=== PATIENT | male | born 1935 | race Caucasian/White ===

== ENCOUNTER → 2022-08-09 | Outpatient (CLI) | payer OTHER | END | disposition home or self-care (01) | LOC: LAB 09:05 | PROVIDERS: ATTEND Internal Medicine | DX: E78.41 Elevated Lipoprotein(a) (principal); R68.89 Other general symptoms and signs; R73.09 Other abnormal glucose; E61.2 Magnesium deficiency; R94.6 Abnormal results of thyroid function studies; E79.0 Hyperuricemia without signs of inflammatory arthritis and tophaceous disease; R82.991 Hypocitraturia; E55.9 Vitamin D deficiency, unspecified; R82.90 Unspecified abnormal findings in urine; R82.79 Other abnormal findings on microbiological examination of urine; D51.9 Vitamin B12 deficiency anemia, unspecified | CPT/HCPCS: 82306; 87086 ==

== ENCOUNTER → 2022-08-27 | Outpatient (CLI) | payer OTHER ==
[2022-08-27 10:09] LABS: Eosinophils # (auto) 0.2 10 ^3/uL (0-0.8); Urine Bacteria FEW /hpf (None Seen); Urine Blood 2+ /uL (Negative); Urine Specific Gravity 1.026 (1.001-1.035); Urine WBC 120 /hpf (0 - 3)
[2022-08-27 10:12] LABS: Basophils # (auto) 0.2 10 ^3/uL (0-0.2); Basophils % (auto) 1.4 % (0.0-2.0); Eosinophils % (auto) 1.5 % (0.0-7.0); Hemoglobin 20.1 g/dL (13.5-17.5); Lymphocytes # (auto) 0.9 10 ^3/uL (0.4-5.4); Lymphocytes % (auto) 6.5 % (10.0-50.0); Mean Corpuscular Hemoglobin 28.1 pg (28.0-32.0); Mean Corpuscular Hgb Conc. 33.4 g/dL (32.0-36.0); Monocytes # (auto) 0.9 10 ^3/uL (0-1.3); Neutrophils # (auto) 11.1 10 ^3/uL (1.6-8.6); Neutrophils % (auto) 83.6 % (37.0-80.0); Nucleated Red Blood Cells % 1.3 %; Red Blood Cells 7.14 10^6/uL (4.5-5.90); Red Cell Distribution Width 17.9 % (11.8-14.3); White Blood Cell 13.3 10^3/uL (4.4-10.8)
[2022-08-27 10:43] LABS: Albumin 3.9 g/dL (3.4-5.0); Calcium 9.4 mg/dL (8.5-10.1); Magnesium 2.1 mg/dL (1.6-2.6); Potassium 4.7 mmol/L (3.5-5.1)
[2022-08-27 10:48] LABS: Total Protein 7.7 g/dL (6.4-8.2); Uric Acid 4.7 mg/dL (3.5-7.2)
[2022-08-27 10:52] LABS: Folate (Folic Acid) 4.74 ng/mL (5.38-24)
== END | disposition home or self-care (01) ==
LOC: LAB 09:26
PROVIDERS: ATTEND Internal Medicine
DX: E61.2 Magnesium deficiency (principal); R79.89 Other specified abnormal findings of blood chemistry; R94.6 Abnormal results of thyroid function studies; E55.9 Vitamin D deficiency, unspecified; R82.998 Other abnormal findings in urine; R82.90 Unspecified abnormal findings in urine; D51.9 Vitamin B12 deficiency anemia, unspecified; E78.49 Other hyperlipidemia; R68.89 Other general symptoms and signs; R73.09 Other abnormal glucose
CPT/HCPCS: 36415; 80053; 80061; 81001; 82306; 82607; 82746; 83735; 84443; 84550; 85025; 87086

== ENCOUNTER 2023-12-23 14:58 | Inpatient (IN) | payer MEDICARE, OTHER ==
[~2023-12-23] VITALS: Ht 175.3 cm; Wt 91.3 kg
[~2023-12-23 14:58] MED LIST: AMLO1TAB23 PO; ATOR80TA PO; FURO20TA3 PO; GABA-1250 PO; INSLANTI SC; METF-372 PO; METO-289 PO
--- NOTE | 2023-12-23 15:24 | ED.PDOC ---
History of Present Illness HPI Comments 88-year-old male brought by paramedics because of possible fall three days ago. Patient complaining of right lower rib pain. Denies loss of consciousness. History of hypertension CHF. He had similar fall three months ago for which she was seen at a different facility. Patient denies any other symptoms. Chief Complaint: Flank Pain Time Seen by MD: 15:05 Reviewed Notes: Nurses Notes, Medications, Allergies Allergies: Coded Allergies: NO KNOWN ALLERGIES (Unverified , 02/18/16) Home Meds Active Scripts Hydrocodone-Acetaminophen (Hydrocodone Bitartrate/AC 5-325 mg) 1 Tab Tab, 1 TAB PO DAILY for 5 Days, #5 TAB Prov:JOELLEN JENNINGS MD 12/23/23 Information Source: Patient, Emergency Med Personnel Mode of Arrival: EMS Severity: Moderate Timing: Days Duration: Since onset Past Medical History PAST MEDICAL HISTORY: DM, HTN Surgical History: Denies all surgeries Family History Family History: No family hx of Cancer, No family hx of Heart delisa Social History Smoker: Non-Smoker Alcohol: Denies ETOH Use Drugs: Denies Drug Use Lives In: Home Constitutional: denies: chills, diaphoresis, fatigue, fever, malaise, sweats, weakness, others EENTM: denies: blurred vision, double vision, ear bleeding, ear discharge, ear drainage, ear pain, ear ringing, eye pain, eye redness, hearing loss, mouth pain, mouth swelling, nasal discharge, nose bleeding, nose congestion, nose pain, photophobia, tearing, throat pain, throat swelling, voice changes, others Respiratory: denies: cough, hemoptysis, orthopnea, SOB at rest, shortness of breath, SOB with excertion, stridor, wheezing, others Cardiovascular: denies: chest pain, dizzy spells, diaphoresis, Dyspnea on exertion, edema, irregular heart beat, left arm pain, lightheadedness, palpitations, PND, syncope, others Gastrointestinal: denies: abdomen distended, abdominal pain, blood streaked bowels, constipated, diarrhea, dysphagia, difficulty swallowing, hematemesis, melena, nausea, poor appetite, poor fluid intake, rectal bleeding, rectal pain, vomiting, others Genitourinary: denies: burning, dysuria, flank pain, frequency, hematuria, incontinence, penile discharge, penile sore, pain, testicle pain, testicle swelling, urgency, others Neurological: denies: dizziness, fainting, headache, left sided numbness, left sided weakness, numbness, paresthesia, pre-existing deficit, right sided numbness, right sided weakness, seizure, speech problems, tingling, tremors, weakness, others Musculoskeletal: denies: back pain, gout, joint pain, joint swelling, muscle pain, muscle stiffness, neck pain, others Integumetry: denies: bruises, change in color, change in hair/nails, dryness, laceration, lesions, lumps, rash, wounds, others Allergic/Immunocompromised: denies: Difficulty Healing, Frequent Infections, Hives, Itching, others Hematologic/Lymphatic: denies: anemia, blood clots, easy bleeding, easy bruising, swollen glands, others Endocrine: denies: excessive hunger, excessive sweating, excessive thirst, excessive urination, flushing, intolerance to cold, intolerance to heat, unexplained weight gain, unexplained weight loss, others Psychiatric: denies: anxiety, bipolar disorder, depression, hopeless, panic disorder, schizophrenia, sleepless, suicidal, others Physical Exam General Appearance: Mild Distress, Normal HEENT: Normal ENT Inspection, Pharynx Normal, TMs Normal Neck: Full Range of Motion, Non-Tender, Normal, Normal Inspection Respiratory: Chest Non-Tender, Lungs Clear, No Accessory Muscle Use, No Respiratory Distress, Normal Breath Sounds Cardiovascular: No Edema, No JVD, No Murmur, No Gallop, Normal Peripheral Pulses, Regular Rate/Rhythm Breast Exam: Deferred Gastrointestinal: No Organomegaly, Non Tender, No Pulsatile Mass, Normal Bowel Sounds, Soft Genitalia: Deferred Pelvic: Deferred Rectal: Deferred Extremities: No calf tenderness, Normal capillary refill, Normal inspection, Normal range of motion, Non-tender, Pedal edema (Chronic) Musculoskeletal : Apperance: Normal Neurologic: Alert, instrument tech II-XII nml as Tested, No Motor Deficits, Normal Affect, Normal Mood, No Sensory Deficits Cerebellar Function: Normal Reflexes: Normal Skin: Dry, Normal Color, Warm Peripheral Pulses: 3+ Radial (R), 3+ Radial (L) Lymphatic: No Adenopathy Was a procedure done? Was a procedure done?: No Differential Dx Considerations may include: Musculoskeletal pain Strain X-Ray, Labs, Meds, VS Vital Signs Date Time Temp Pulse Resp B/P (MAP) Pulse Ox O2 Delivery O2 Flow Rate FiO2 12/23/23 15:08 97.7 71 16 148/80 (102) 98 Patient alert. Complaining of right-sided rib pain. Vitals stable. Answering all questions. Status post fall. No sign of distress. No head injury. Chronic condition. Reviewed his history. Explained to the patient. Chronic CHF. He is taking Lasix. Denies shortness of breath. Denies chest pain. Denies headache. Was told to follow up with his primary care physician. Was told to come back if there is any problem. Try to discharge the patient. He is having mild shortness a breath. CHF. Unable to take care himself. Fracture ribs. We will be admitted for CHF pain control. Time of 1ST Reevaluation: 15:22 Reevaluation 1ST: Unchanged Patient Education/Counseling: Diagnosis, Treatment, Prognosis, Need For Follow Up Family Education/Counseling: No Family Present Departure 1 Departure Time of Disposition: 15:24 Impression: Primary Impression: CHF (congestive heart failure) Qualified Codes: I50.43 - Acute on chronic combined systolic (congestive) and diastolic (congestive) heart failure Additional Impressions: Rib fracture Qualified Codes: S22.41XA - Multiple fractures of ribs, right side, initial encounter for closed fracture Pneumonitis Disposition: ADMITTED INPATIENT Admit to: Med Surg Condition: Guarded e-Prescriptions Hydrocodone-Acetaminophen (Hydrocodone Bitartrate/AC 5-325 mg) 1 Tab Tab 1 TAB PO DAILY for 5 Days, #5 TAB Prov: JOELLEN JENNINGS MD 12/23/23 Critical Care Note Critical Care Time?: No Stability Stability form required: No Heart Score Heart Score: Heart Score Response (Comments) Value History N/A 0 EKG N/A 0 Age N/A 0 Risk Factors N/A 0 Troponin N/A 0 Total 0 JOELLEN JENNINGS MD Dec 23, 2023 15:24
--- NOTE | 2023-12-23 16:23 | DVH ---
CHEST RADIOGRAPH Indication:sob Technique: Single frontal view of the chest was obtained Comparison: None FINDINGS: Lines and Tubes: None Lungs: No focal consolidation. Mild diffuse interstitial prominence. Pleura: No effusion. No pneumothorax. Cardiomediastinal contours: Mild cardiomegaly Bones: No acute osseous abnormality. IMPRESSION: Mild cardiomegaly with mild diffuse interstitial prominence which may be from fibrotic changes/pulmon chinyere edema/ interstitial pneumonitis.
--- NOTE | 2023-12-23 16:27 | DVH ---
CLINICAL INDICATION: fall TECHNIQUE: 4 radiographic views of the right ribs were obtained. Comparison: None FINDINGS/IMPRESSION: Minimally displaced fractures of the right 8th and 9th ribs. No pneumothorax no pleural effusions. The visualized joint space is well maintained. The alignment is anatomical. There is no radiopaque foreign body.
[2023-12-23] MEDS ORDERED: HYDR-4902 PO (16:37)
[2023-12-23] MEDS: cefTRIAXone 1GM/50ML D5W 50 ML IV ONE (17:16)
[2023-12-23] MEDS: HYDROcodone-ACET 5/325MG TAB PO ONE (17:20)
[2023-12-23] MEDS: FUROSEMIDE 20 MG/2 ML VIAL IV ONE (17:20)
[2023-12-23 17:39] VITALS: PULSE 94; RESP 18; O2SAT 96
[2023-12-23 17:52] LABS: Basophils # (auto) 0.3 10 ^3/uL (0-0.2); Basophils % (auto) 2.9 % (0.0-2.0); Eosinophils # (auto) 0.3 10 ^3/uL (0-0.8); Eosinophils % (auto) 2.5 % (0.0-7.0); Hematocrit 55.2 % (41.0-53.0); Hemoglobin 18.7 g/dL (13.5-17.5); Lymphocytes # (auto) 0.9 10 ^3/uL (0.4-5.4); Lymphocytes % (auto) 7.9 % (10.0-50.0); Mean Corpuscular Hemoglobin 27.8 pg (28.0-32.0); Mean Corpuscular Hgb Conc. 33.9 g/dL (32.0-36.0); Mean Corpuscular Volume 81.8 fL (80.0-100.0); Monocytes # (auto) 0.9 10 ^3/uL (0-1.3); Monocytes % (auto) 7.6 % (0.0-12.0); Neutrophils # (auto) 9.4 10 ^3/uL (1.6-8.6); Neutrophils % (auto) 79.1 % (37.0-80.0); Platelet Count (auto) 542 10^3/uL (140-450); Red Blood Cells 6.74 10^6/uL (4.5-5.90); Red Cell Distribution Width 16.6 % (11.8-14.3); White Blood Cell 11.8 10^3/uL (4.4-10.8)
[2023-12-23 17:59] LABS: Chloride 109 mmol/L (98-107); Potassium 3.6 mmol/L (3.5-5.1); Sodium 144 mmol/L (136-145)
[2023-12-23] MEDS: AZITHROMYCIN 500MG/ 250ML 250 ML IV ONE (17:59)
[2023-12-23 18:00] LABS: Anion Gap 10 (5-15); Calcium 9.7 mg/dL (8.7-10.4); Carbon Dioxide 25 mmol/L (20-31)
[2023-12-23 18:05] LABS: BUN/Creatinine Ratio 17.6 (10.0-20.0); Blood Urea Nitrogen 15 mg/dL (9-23); Glucose 102 mg/dL (74-106)
[2023-12-23 19:30] VITALS: PULSE 85; RESP 12; O2SAT 99
[2023-12-23] MEDS ORDERED: NITROGLYCERIN 0.4 MG SL TAB SL PRN (21:00)
[2023-12-23] MEDS ORDERED: ACETAMINOPHEN 325 MG TAB PO PRN (21:00)
[2023-12-23] MEDS ORDERED: ONDANSETRON HCL 4 MG/2 ML VIAL IV PRN (21:00)
[2023-12-23] MEDS ORDERED: MORPHINE SULFATE INJ 2 MG/ml SYRG IV PRN (21:00)
[2023-12-23] MEDS: SODIUM CHLOR 0.9% PF (SALINE LOCK) 10ML VIAL/SYR IV SCH (21:29)
[2023-12-23] MEDS: MORPHINE SULFATE INJ 2 MG/ml SYRG IV PRN (21:44)
[2023-12-23] MEDS: ENOXAPARIN SOD 40 MG/0.4 ML SYRINGE SC SCH (22:10)
[2023-12-23 23:40] VITALS: BP 124/62; PULSE 64; RESP 18; TEMP 98.2; O2SAT 98
[2023-12-23] MEDS: FUROSEMIDE 40 MG/4 ML VIAL IV SCH (23:45)
--- NOTE | 2023-12-23 23:49 | DVHHPRES ---
History of Present Illness Resident Creating Document: CHARU MOLINA RESIDENT History of Present Illness ROBERT IBRAHIM is 8 years old male with a PMH of type 2 DM, HTN presented to the ED with the chief complaints of mechanical fall without LOC three days prior to admission. Patient reported 3 days back he fell on the bed rail and hit his right-sided ribcage, having severe pain of right lower ribcage constant 7/10 without radiation, fever, nausea, vomiting, abdominal pain and other associated symptoms. Past Medical History Type 2 DM, HTN Past Surgical History Hernia repair Family History: None Past Social History Lives alone at home. Denies smoking, alcohol and other drug abuse Review of Systems Constitutional: No: Fever, Chills, Sweats, Weakness, Malaise, Other Eyes: No: Pain, Vision change, Conjunctivae inflammation, Eyelid inflammation, Other, Redness ENT: No: Ear pain, Ear discharge, Nose pain, Nose discharge, Nose congestion, Mouth pain, Mouth swelling, Throat pain, Throat swelling, Other Respiratory: Shortness of breath Cardiovascular: Edema Gastrointestinal: No: Nausea, Vomiting, Abdominal Pain, Diarrhea, Constipation, Melena, Hematochezia, Other Genitourinary: Retention Musculoskeletal: other (Right-sided lower rib cage pain) Skin: No: Rash, Lesions, Jaundice, Bruising, Other Neurological: No: Weakness, Numbness, Incoordination, Change in speech, Confusion, Seizures, Other Allergies: Coded Allergies: NO KNOWN ALLERGIES (Unverified , 02/18/16) Medications Current Medications Medications Dose Ordered Sig/Kishan Route Start Time Stop Time Status Last Admin Dose Admin Sodium Chloride 10 ml Q8HR IV 12/23/23 22:00 12/23/23 21:29 10 ML Acetaminophen 325 mg Q4HP PRN PO 12/23/23 21:00 Ondansetron HCl 4 mg Q4HP PRN IV 12/23/23 21:00 Morphine Sulfate 2 mg Q4HPRN PRN IV 12/23/23 21:00 12/23/23 21:44 2 MG Enoxaparin Sodium 40 mg DAILY@2100 SC 12/23/23 21:00 12/23/23 22:10 40 MG Nitroglycerin 0.4 mg Q5MINP PRN SL 12/23/23 21:00 Morphine Sulfate 2 mg Q30M PRN IV 12/23/23 21:00 Furosemide 40 mg DAILY IV 12/23/23 23:45 UNV Exam Vital Signs Vital Signs Date Time Temp Pulse Resp B/P (MAP) Pulse Ox O2 Delivery O2 Flow Rate FiO2 12/23/23 22:14 82 12 118/66 12/23/23 22:00 90 12/23/23 17:39 Room Air* 0 21 12/23/23 15:08 97.7 Exam Pt is lying on bed General Appearance: Alert, Oriented X3, Cooperative, Not in acute distress HEENT: Atraumatic, Mucous membranes moist/pink Respiratory: Clear to auscultation, Normal air movement, No added sounds Cardiovascular: Regular rate, Normal S1, Normal S2, No murmurs Abdominal: Active bowel sounds, Soft, no distention, no tenderness Extremities: 1+ edema in BLE Skin: No Significant rash, except past surgical scars MSK: Right-sided lower rib cage tenderness Neuro: Normal speech, sensorimotor deficits none Psych/Mental Status: Mental status NL, Mood NL Labs/Xrays Labs Test 12/23/23 17:25 Range/Units White Blood Count 11.8 H 4.4-10.8 10^3/uL Red Blood Count 6.74 H 4.5-5.90 10^6/uL Hemoglobin 18.7 H 13.5-17.5 g/dL Hematocrit 55.2 H 41.0-53.0 % Mean Corpuscular Volume 81.8 80.0-100.0 fL Mean Corpuscular Hemoglobin 27.8 L 28.0-32.0 pg Mean Corpuscular Hemoglobin Concent 33.9 32.0-36.0 g/dL Red Cell Distribution Width 16.6 H 11.8-14.3 % Platelet Count 542 H 140-450 10^3/uL Mean Platelet Volume 7.4 6.9-10.8 fL Neutrophils (%) (Auto) 79.1 37.0-80.0 % Lymphocytes (%) (Auto) 7.9 L 10.0-50.0 % Monocytes (%) (Auto) 7.6 0.0-12.0 % Eosinophils (%) (Auto) 2.5 0.0-7.0 % Basophils (%) (Auto) 2.9 H 0.0-2.0 % Neutrophils # (Auto) 9.4 H 1.6-8.6 10 ^3/uL Lymphocytes # (Auto) 0.9 0.4-5.4 10 ^3/uL Monocytes # (Auto) 0.9 0-1.3 10 ^3/uL Eosinophils # (Auto) 0.3 0-0.8 10 ^3/uL Basophils # (Auto) 0.3 H 0-0.2 10 ^3/uL Nucleated Red Blood Cells 0.0 % Sodium Level 144 136-145 mmol/L Potassium Level 3.6 3.5-5.1 mmol/L Chloride Level 109 H 98-107 mmol/L Carbon Dioxide Level 25 20-31 mmol/L Anion Gap 10 5-15 Blood Urea Nitrogen 15 9-23 mg/dL Creatinine 0.85 0.700-1.30 mg/dL Glomerular Filtration Rate Calc 85 >90 mL/min BUN/Creatinine Ratio 17.6 10.0-20.0 Serum Glucose 102 74-106 mg/dL Calcium Level 9.7 8.7-10.4 mg/dL Troponin I High Sensitivity 6 </=54 ng/L B-Type Natriuretic Peptide 183.80 0-100 pg/mL Assessment/Plan Assessment/Plan # acute displaced fracture of right 8th and 9th ribs -currently on pain management -evident on x-ray -consult orthopedic if needed # ? Reactive leukocytosis # rule out sepsis -given 1 dose ceftriaxone -monitor lab # ? Acute G+/G- Bacterial PNA -given 1 dose of azithromycin and ceftriaxone -CXR findings suggestive of pneumonia # ? acute vs chronic systolic vs diastolic CHF -elevated BNP -ordered echocardiogram -currently given Lasix 40 mg IV -consult cardiology if needed # polycythemia -monitor lab -ordered reticulocyte count Lovenox for now No GI PPX Cardiac diet Reconciled home meds Goals of care discussed with the patient for more than 27 minutes: Full code status Case management discussed with Dr. Sanchez, patient and nurse Plan discussed with: Patient My Orders Orders - CHARU MOLINA RESIDENT Procedure Category Date Status Time Allergies MARK 12/23/23 In Process 20:46 Code Status CODE 12/23/23 Transmitted 20:46 Sodium Chloride Lock PHA 12/23/23 In Process (Saline Lock Ns) 22:00 Acetaminophen Tablet PHA 12/23/23 In Process (Tylenol Tablet) 21:00 Ondansetron Hcl PHA 12/23/23 In Process (Zofran) 21:00 Complete Blood Count LAB 12/24/23 Verified 04:00 Comprehensive LAB 12/24/23 Verified Metabolic Panel 04:00 Cardiac DIET 12/24/23 Transmitted Diet-2gna,Lofat,Lochol Breakfast Morphine Sulfate PHA 12/23/23 In Process Injection 21:00 Enoxaparin Sodium PHA 12/23/23 In Process (Lovenox) 21:00 Nitroglycerin PHA 12/23/23 In Process Sublingual (Ntrostat 21:00 Morphine Sulfate PHA 12/23/23 In Process Injection 21:00 Oxygen By Nasal RT 12/23/23 Transmitted Cannula 20:46 Stat Ekg For Chest MARK 12/23/23 In Process Pain 20:46 Notify Of Changes MARK 12/23/23 In Process From Base 20:46 Supervisor Of Communications For MARK 12/23/23 In Process 24 Hours 20:46 Emergency Dysrhythmia [facility] 12/23/23 In Process Protocol 20:46 Rhythm Strips Once [facility] 12/23/23 In Process Every Shift 20:46 Admit ADMIT 12/23/23 Transmitted 20:47 Complete Blood Count LAB 12/23/23 Transmitted 23:39 Comprehensive LAB 12/23/23 Transmitted Metabolic Panel 23:39 Drug Screen LAB 12/23/23 Transmitted 23:39 Hemoglobin A1c LAB 12/23/23 Transmitted 23:39 PTPTT LAB 12/24/23 Verified 04:00 Thyroid Stimulating LAB 12/23/23 Transmitted Hormone 23:39 Urinalysis LAB 12/23/23 Transmitted 23:39 Vitamin B12 LAB 12/23/23 Transmitted 23:39 Vitamin D, 25-Hydroxy LAB 12/23/23 Transmitted 23:39 Lactic Acid W/ Reflex LAB 12/23/23 Transmitted Order 23:39 Echo 2d Mode Cardiac US 12/23/23 Logged DOP 23:39 Furosemide Injection PHA 12/23/23 Logged (Lasix Injection) 23:45 Reticulocyte Count LAB 12/23/23 Transmitted 23:46 Date of Service: Dec 23, 2023 Billing Provider: KEE SANCHEZ MD Common Visit Codes: [id number] INP/OBS CARE (HIGH) Secondary Visit Codes: [id number] CARE PLAN 30 MINUTES JESSECHARLENEKIAN RESIDENT Dec 23, 2023 23:49 KEE SANCHEZ MD Dec 24, 2023 12:54
[2023-12-24] VITALS (9 sets, daily range): BP systolic 103–138; BP diastolic 52–79; PULSE 53–95; RESP 15–18; TEMP 97.8–99.2; O2SAT 94–98
[2023-12-24 06:27] LABS: Basophils # (auto) 0.1 10 ^3/uL (0-0.2); Basophils % (auto) 1.3 % (0.0-2.0); Eosinophils # (auto) 0.2 10 ^3/uL (0-0.8); Eosinophils % (auto) 1.6 % (0.0-7.0); Hematocrit 49.3 % (41.0-53.0); Hemoglobin 16.6 g/dL (13.5-17.5); Lymphocytes # (auto) 0.7 10 ^3/uL (0.4-5.4); Lymphocytes % (auto) 6.2 % (10.0-50.0); Mean Corpuscular Hemoglobin 27.6 pg (28.0-32.0); Mean Corpuscular Hgb Conc. 33.7 g/dL (32.0-36.0); Mean Corpuscular Volume 81.7 fL (80.0-100.0); Monocytes # (auto) 0.8 10 ^3/uL (0-1.3); Neutrophils # (auto) 9.8 10 ^3/uL (1.6-8.6); Neutrophils % (auto) 83.9 % (37.0-80.0); Nucleated Red Blood Cells % 0.1 %; Platelet Count (auto) 467 10^3/uL (140-450); Red Blood Cells 6.04 10^6/uL (4.5-5.90); Red Cell Distribution Width 16.4 % (11.8-14.3); White Blood Cell 11.7 10^3/uL (4.4-10.8)
[2023-12-24 06:41] LABS: INR 1.31 (0.9-1.15); Partial Thromboplastin Time 33.4 SEC (24.5-34.5); Prothrombin Time 13.6 sec (9.3-11.8)
[2023-12-24 06:50] LABS: Alanine Aminotransferase 85 U/L (7-40); Albumin 3.7 g/dL (3.2-4.8); Alkaline Phosphatase 83 U/L (46-116); Anion Gap 6 (5-15); Aspartate Aminotransferase 72 U/L (13-40); BUN/Creatinine Ratio 14.7 (10.0-20.0); Blood Urea Nitrogen 14 mg/dL (9-23); Calcium 9.3 mg/dL (8.7-10.4); Carbon Dioxide 29 mmol/L (20-31); Chloride 109 mmol/L (98-107); Glucose 156 mg/dL (74-106); Potassium 3.8 mmol/L (3.5-5.1); Sodium 144 mmol/L (136-145); Total Protein 6.1 g/dL (5.7-8.2)
[2023-12-24 08:27] LABS: Urine Bacteria None Seen /hpf (None Seen)
[2023-12-24 08:35] LABS: Urine Blood 1+ /uL (Negative); Urine Clarity Clear (Clear); Urine Color Yellow (Yellow); Urine Mucus FEW (None Seen); Urine Protein, UAD 1+ (Negative); Urine Specific Gravity 1.022 (1.001-1.035); Urine Urobilinogen Normal (Negative); Urine WBC 107 /hpf (0 - 3); Urine pH 5.5 (5.0-9.0)
[2023-12-24 08:45] LABS: Amphetamine Screen, Urine Neg (NEGATIVE); Barbiturate Scree,Urine Neg (NEGATIVE); Benzodiazephine Screen, Urine Neg (NEGATIVE); Cannabinoid Screen, Urine Neg (NEGATIVE); Cocaine Screen, Urine Neg (NEGATIVE); Opiate Scree,Urine Pos (NEGATIVE); Phencyclidine Screen, Urine Neg (NEGATIVE)
[2023-12-24] MEDS: METOPROLOL TARTRATE 25 MG TAB PO ONE (11:41)
[2023-12-24] MEDS: ERGOCALCIFEROL 50,000 UNIT(1.25MG) CAP PO SCH (11:43)
--- NOTE | 2023-12-24 13:31 | DVHSR ---
APPROVED REPORT EXAM: LIMITED Two-dimensional and M-mode echocardiogram with Doppler and color Doppler. Blood Pressure: 112/55 mmHg INDICATION Edema SOB RISK FACTORS Height: 5' 9", Weight: 207 DIMENSIONS LVDd5.0 (3.8-5.7cm)LA (2D)4.4 (1.9-4.0cm)Aortic Root3.7 (2.0-3.7cm) LVDs3.9 (2.5-4.0cm)LA (MM) (1.9-4.0cm)Aortic Cusp Exc1.7 (1.5-2.0cm) EF (%) 45.0 (55-70%)Rt. Atrium4.1 (1.9-4.0cm)Asc. Aorta cm IVSd1.1 (0.7-1.1cm)RV (D) (1.8-2.4cm) PWd1.2 (0.7-1.1cm) Mitral Valve MitralMitral Stenosis E wave1.00m/sMV Mean GR.mmHg E/A ratio0.02D MVAcm2 Aortic Valve Aortic ValveAortic Stenosis V10.70m/[place] Mean GR.3mmHg V21.10m/[place] Peak GR.5mmHg LVOT Diameter2.7 (1.8-2.4cm)Doppler AVA3.64cm2 Pulmonic Valve V20.70m/s Tricuspid Valve TR Velocity2.70m/s [id number] Other Information Quality : Technically LimitedRhythm : Technically limited study due to body habitus. Conclusion Mildly reduced left ventricular systolic function estimated ejection fraction 45% in a global fashion . Patient is in atrial fibrillation. Normal right ventricular systolic function. Moderately dilated right ventricle. Mildly elevated rig ht ventricular systolic pressure 36 mm of mercury. Moderate biatrial enlargement. The aortic valve is mildly thickened and sclerotic. Normal mitral valve structure and function. Normal tricuspid valve structure and function. The pulmonary valve is grossly normal. No pericardial effusion.
--- NOTE | 2023-12-24 14:04 | DVHPN2 ---
Subjective The patient is seen and examined at bedside. No complaint today. Very tired Reviewed: Care Plan, H&P, Labs, Medications, Previous Orders, Radiology Changes from previous H/P or p: No Changes Eyes: No Pain, No Vision change, No Conjunctivae inflammation, No Eyelid inflammation, No Other, No Redness ENT: No Ear pain, No Ear discharge, No Nose pain, No Nose discharge, No Nose congestion, No Mouth pain, No Mouth swelling, No Throat pain, No Throat swelling, No Other Cardiovascular: Edema Respiratory: Shortness of breath Gastrointestinal: No Nausea, No Vomiting, No Abdominal Pain, No Diarrhea, No Constipation, No Melena, No Hematochezia, No Other Genitourinary: Retention Musculoskeletal: other (Right-sided lower rib cage pain) Skin: No Rash, No Lesions, No Jaundice, No Bruising, No Other Objective Vitals Vital Signs Date Time Temp Pulse Resp B/P (MAP) Pulse Ox O2 Delivery O2 Flow Rate FiO2 12/24/23 13:00 98.2 77 16 122/71 (88) 97 98.2 12/24/23 08:00 Nasal Cannula* 2 28 Intake/Output Intake and Output 12/24/23 07:00 Intake Total 425 ml Output Total 550 ml Balance -125 ml Intake Oral 200 ml IV Total 225 ml Output Urine Total 550 ml # Voids 2 General Appearance: Alert, Oriented X3, Cooperative, No acute distress HEENT: Atraumatic, PERRLA, EOMI, Mucous membr. moist/pink Neck: Supple Lungs: Clear to auscultation, Normal air movement Cardiovascular: Regular rate, Normal S1, Normal S2, No murmurs, Gallops, Rubs Abdomen: Normal bowel sounds, Soft, No tenderness Extremities: No clubbing Neuro: Cranial nerves 3-12 NL Psych/Mental Status: Mental status NL Medications Current Medications Medications Dose Ordered Sig/Kishan Route Start Time Stop Time Status Last Admin Dose Admin Sodium Chloride 10 ml Q8HR IV 12/23/23 22:00 12/24/23 12:28 10 ML Acetaminophen 325 mg Q4HP PRN PO 12/23/23 21:00 Ondansetron HCl 4 mg Q4HP PRN IV 12/23/23 21:00 Morphine Sulfate 2 mg Q4HPRN PRN IV 12/23/23 21:00 12/24/23 02:00 2 MG Enoxaparin Sodium 40 mg DAILY@2100 SC 12/23/23 21:00 12/23/23 22:10 40 MG Nitroglycerin 0.4 mg Q5MINP PRN SL 12/23/23 21:00 Morphine Sulfate 2 mg Q30M PRN IV 12/23/23 21:00 Furosemide 40 mg DAILY IV 12/23/23 23:45 12/24/23 08:15 40 MG Ergocalciferol 50,000 unit Q7D PO 12/24/23 07:45 12/24/23 11:43 50,000 UNIT Metoprolol Tartrate 25 mg BID PO 12/24/23 22:00 Laboratory Results Laboratory Tests 12/24/23 06:02 Chemistry Test 12/23/23 17:25 12/24/23 06:02 Calcium Level 9.7 mg/dL (8.7-10.4) 9.3 mg/dL (8.7-10.4) Albumin 3.7 g/dL (3.2-4.8) Total Protein 6.1 g/dL (5.7-8.2) Coagulation Test 12/24/23 06:02 Prothrombin Time 13.6 sec (9.3-11.8) H Prothrombin Time INR 1.31 (0.9-1.15) H Activated Partial Thromboplast Time 33.4 SEC (24.5-34.5) Cardiac Markers Test 12/23/23 17:25 B-Type Natriuretic Peptide 183.80 pg/mL (0-100) LFT Test 12/24/23 06:02 Alanine Aminotransferase (ALT) 85 U/L (7-40) H Alkaline Phosphatase 83 U/L (46-116) Aspartate Amino Transferase (AST) 72 U/L (13-40) H Total Bilirubin 1.0 mg/dL (0.2-1.0) HgA1c, TSH Test 12/24/23 06:02 Hemoglobin A1c 5.3 % A1C (<5.7) Thyroid Stimulating Hormone (TSH) 1.37 uIU/mL (0.55-4.78) Urinalysis Test 12/24/23 08:22 Urine Color Yellow (Yellow) Urine Clarity Clear (Clear) Urine pH 5.5 (5.0-9.0) Urine Specific [place] 1.022 (1.001-1.035) Urine Protein 1+ (Negative) H Urine Ketones 1+ (Negative) H Urine Blood 1+ /uL (Negative) H Urine Nitrite Negative (Negative) Urine Bilirubin Negative (Negative) Urine Urobilinogen Normal mg/dL (Negative) Urine Leukocyte Esterase 2+ /uL (Negative) Urine RBC 11 /hpf (0 - 3) Urine WBC 107 /hpf (0 - 3) Urine Squamous Epithelial Cells Few /hpf (<5) Urine Bacteria None seen /hpf (None Seen) Urine Mucus Few (None Seen) Urine Glucose Normal mg/dL (Normal) Labs and/or images reviewed: Labs reviewed by me Assessment/Plan Assessment/Plan #Mechanical fall # Atrial fib, ? new onset? EKG show afib. I will consult Welding Estimator Metoprolol 25mg bid # acute displaced fracture of right 8th and 9th ribs -currently on pain management -evident on x-ray -consult orthopedic if needed # ? Reactive leukocytosis # rule out sepsis -given 1 dose ceftriaxone -monitor lab # ? Acute G+/G- Bacterial PNA -given 1 dose of azithromycin and ceftriaxone -CXR findings suggestive of pneumonia # ? acute vs chronic systolic vs diastolic CHF -elevated BNP -ordered echocardiogram -currently given Lasix 40 mg IV -consult cardiology if needed # polycythemia -monitor lab -ordered reticulocyte count Lovenox for now No GI PPX Cardiac diet Reconciled home meds Plan discussed with: Patient My Orders Orders - KEKE YATES MD Procedure Category Date Status Time Transfer Orders XFER 12/24/23 Transmitted 11:07 Structural Analyst ORDERS 12/24/23 Transmitted 11:07 * Cardiology Consult CONS 12/24/23 Transmitted 11:07 Metoprolol Tartrate PHA 12/24/23 In Process Tablet (Lopressor Ta 22:00 Date of Service: Dec 24, 2023 Billing Provider: KEKE YATES MD Common Visit Codes: [id number] INP/OBS CARE(HIGH) KEKE YATES MD Dec 24, 2023 14:04
[2023-12-24] MEDS: METOPROLOL TARTRATE 25 MG TAB PO SCH (22:12)
[2023-12-25] VITALS (9 sets, daily range): BP systolic 102–122; BP diastolic 51–76; PULSE 64–91; RESP 16–20; TEMP 97.8–98.8; O2SAT 91–97
--- NOTE | 2023-12-25 08:50 | ECG ---
[facility] Test Date: 2023-12-24 Test Time: 10:03:47 Pat Name: ROBERT IBRAHIM Department: Respiratoy Room: 0248T B Gender: M Boat Officer: BORIS T : 1935 Requested By: KEKE YATES Order Number: [id number] Reading MD: Marixa Mchugh Measurements Intervals [place]ricks Rate: 74 P: 0 DE: 0 QRS: 65 QRSD: 89 T: 68 QT: 392 QTc: 435 Interpretive Statements Atrial fibrillation Borderline low voltage, extremity leads Probable anteroseptal infarct, old Electronically Signed On 12-26-2023 17:24:39 PST by Marixa Mchugh Please click the below link to view image of tracing.
--- NOTE | 2023-12-25 11:34 | DVHINCON2 ---
Date Seen: Dec 25, [address] Landa Reason for Consultation New onset atrial fibrillation History of Present Illness 88-year-old male with PMH for polycythemia, Guillain-Norwalk syndrome, skin cancer, BPH, HTN, and depression presented to the hospital with mechanical fall. Patient reported that he fell and hit the side rail of his bed his right side ribcage. Patient has been having constant pain, sharp, intermittent, nonradiating, increases with movement, palpation, and deep breathing. Denies any palpitations, diaphoresis, lightheadedness. Patient denies having loss of consciousness during fall nor having lightheadedness and was due to missed a st ep and loss of balance. Patient was evaluated in the ER and admitted with right 8th and 9th rib fracture on x-ray. Troponin was negative. ProBNP is 183. CXR showed cardiomegaly with mild diffuse pulmonary edema and interstitial pneumonitis. Patient was being diuresis with fluid in discharge planning was be done when patient noted to have irregular heart rate med surge. Upon evaluation patient noted to be in atrial fibrillation. Denies history of atrial fibrillation, irregular heart rate, palpitations, and denies being on anticoagulation therapy. Cardiology consulted. EKG reviewed and shows atrial fibrillation controlled at 74 beats per minute. Past Medical History As stated above Past Surgical History Hernia repair Family History: Patient reports no known family medical history. Family History Denies pertinent family cardiac history Social History Denies alcohol, tobacco, or illicit drug use Allergies: Coded Allergies: NO KNOWN ALLERGIES (Unverified , 02/18/16) Home Meds Active Scripts Hydrocodone-Acetaminophen (Hydrocodone Bitartrate/AC 5-325 mg) 1 Tab Tab, 1 TAB PO DAILY for 5 Days, #5 TAB Prov:JOELLEN JENNINGS MD 12/23/23 Current Medications Current Medications Medications (Trade) Dose Ordered Sig/Kishan Route PRN Reason Start Time Stop Time Status Last Admin Metoprolol Tartrate (Lopressor Tablet) 25 mg BID PO 12/24/23 22:00 12/25/23 07:42 Review of Systems Constitutional: No: Fever, Chills, Sweats, Weakness, Malaise, Other Eyes: No: Pain, Vision change, Conjunctivae inflammation, Eyelid inflammation, Other, Redness ENT: No: Ear pain, Ear discharge, Nose pain, Nose discharge, Nose congestion, Mouth pain, Mouth swelling, Throat pain, Throat swelling, Other Respiratory: No: Cough, Dry, Shortness of breath, SOB with exertion, Wheezing, Hemoptysis, Pleuritic Pain, Sputum, Wheezing, Other Cardiovascular: ; No: Palpitations, Orthopnea, Paroxysmal Noc. Dyspnea, Edema, Lt Headedness, Other positive: Right Chest/thoracic Pain Gastrointestinal: No: Nausea, Vomiting, Abdominal Pain, Diarrhea, Constipation, Melena, Hematochezia, Other Genitourinary: No Dysuria, No Frequency, No Incontinence, No Hematuria, No Retention, No Other Musculoskeletal: neck pain; No: other, shoulder pain, arm pain, back pain, hand pain, leg pain, foot pain Skin: No: Rash, Lesions, Jaundice, Bruising, Other Neurological: Other (Dizziness, headache.); No: Weakness, Numbness, Incoordination, Change in speech, Confusion, Seizures Vital Signs Vital Signs Date Time Temp Pulse Resp B/P (MAP) Pulse Ox O2 Delivery O2 Flow Rate FiO2 12/25/23 09:00 97.8 72 20 122/75 (91) 93 97.8 12/25/23 08:00 Nasal Cannula* 2 28 Physical Exam General appearance: Patient is well-developed, well-nourished, in no acute distress. HEENT: Exam shows: Normocephalic, atraumatic, PERRLA, EOMI Neck: Supple, no bruits Chest: Equal chest excursion bilaterally. Breath sounds normal-no rales or wheezes. Heart: Rhythm: Irregular rate; no murmur or gallop Abdomen: Exam shows: Soft, nontender, nondistended Musculoskeletal: No clubbing, no cyanosis, no lower extremity edema Dermatology: Skin warm, moist. Neurological: Exam shows: Alert and oriented x4, normal speech Available prior records, labs, EKG, rhythm strips reviewed and interpreted Labs/Diagnostic Data Labs Test 12/24/23 08:22 12/24/23 06:02 12/23/23 17:25 Range/Units Urine Color Yellow Yellow Urine Clarity Clear Clear Urine pH 5.5 5.0-9.0 Urine Specific [place] 1.022 1.001-1.035 Urine Protein 1+ H Negative Urine Ketones 1+ H Negative Urine Blood 1+ H Negative /uL Urine Nitrite Negative Negative Urine Bilirubin Negative Negative Urine Urobilinogen Normal Negative mg/dL Urine Leukocyte Esterase 2+ Negative /uL Urine RBC 11 0 - 3 /hpf Urine WBC 107 0 - 3 /hpf Urine Squamous Epithelial Cells Few <5 /hpf Urine Bacteria None seen None Seen /hpf Urine Mucus Few None Seen Urine Glucose Normal Normal mg/dL Urine Opiates Screen Pos NEGATIVE Urine Fentanyl Screen Neg NEGATIVE Urine Barbiturates Screen Neg NEGATIVE Urine Phencyclidine Screen Neg NEGATIVE Urine Amphetamines Screen Neg NEGATIVE Urine Benzodiazepines Screen Neg NEGATIVE Urine Cocaine Screen Neg NEGATIVE Urine Cannabinoids Screen Neg NEGATIVE White Blood Count 11.7 H 4.4-10.8 10^3/uL Red Blood Count 6.04 H 4.5-5.90 10^6/uL Hemoglobin 16.6 13.5-17.5 g/dL Hematocrit 49.3 # 41.0-53.0 % Mean Corpuscular Volume 81.7 80.0-100.0 fL Mean Corpuscular Hemoglobin 27.6 L 28.0-32.0 pg Mean Corpuscular Hemoglobin Concent 33.7 32.0-36.0 g/dL Red Cell Distribution Width 16.4 H 11.8-14.3 % Platelet Count 467 H 140-450 10^3/uL Mean Platelet Volume 7.6 6.9-10.8 fL Neutrophils (%) (Auto) 83.9 H 37.0-80.0 % Lymphocytes (%) (Auto) 6.2 L 10.0-50.0 % Monocytes (%) (Auto) 7.0 0.0-12.0 % Eosinophils (%) (Auto) 1.6 0.0-7.0 % Basophils (%) (Auto) 1.3 0.0-2.0 % Neutrophils # (Auto) 9.8 H 1.6-8.6 10 ^3/uL Lymphocytes # (Auto) 0.7 0.4-5.4 10 ^3/uL Monocytes # (Auto) 0.8 0-1.3 10 ^3/uL Eosinophils # (Auto) 0.2 0-0.8 10 ^3/uL Basophils # (Auto) 0.1 0-0.2 10 ^3/uL Nucleated Red Blood Cells 0.1 % Prothrombin Time 13.6 H 9.3-11.8 sec Prothrombin Time INR 1.31 H 0.9-1.15 Activated Partial Thromboplast Time 33.4 24.5-34.5 SEC Sodium Level 144 136-145 mmol/L Potassium Level 3.8 3.5-5.1 mmol/L Chloride Level 109 H 98-107 mmol/L Carbon Dioxide Level 29 20-31 mmol/L Anion Gap 6 5-15 Blood Urea Nitrogen 14 9-23 mg/dL Creatinine 0.95 0.700-1.30 mg/dL Glomerular Filtration Rate Calc 78 >90 mL/min BUN/Creatinine Ratio 14.7 10.0-20.0 Serum Glucose 156 H 74-106 mg/dL Hemoglobin A1c 5.3 <5.7 % A1C Lactic Acid Level 0.9 0.4-2.0 mmol/L Calcium Level 9.3 8.7-10.4 mg/dL Total Bilirubin 1.0 0.2-1.0 mg/dL Aspartate Amino Transferase (AST) 72 H 13-40 U/L Alanine Aminotransferase (ALT) 85 H 7-40 U/L Alkaline Phosphatase 83 46-116 U/L Total Protein 6.1 5.7-8.2 g/dL Albumin 3.7 3.2-4.8 g/dL Vitamin B12 Level 524 211-911 pg/mL Vitamin D 25-Hydroxy 23.3 L 30.0-100 ng/mL Thyroid Stimulating Hormone (TSH) 1.37 0.55-4.78 uIU/mL Troponin I High Sensitivity 6 </=54 ng/L B-Type Natriuretic Peptide 183.80 0-100 pg/mL Assessment (Dr. Crenshaw) * New onset atrial fibrillation - mildly reduced LV function with EF 45%, global hypokinesis. Moderate biatrial enlargement. No significant valvular structural abnormalities. Continue metoprolol. High [id number] score. Spoke with patient regarding risks and benefits. Due to recent rib fracture anticoagulation held for now. Continue metoprolol 25 mg twice daily. Recommend PT and social work eval for fall risk stratification prior to initiating on anticoagulation therapy. * Acute systolic HF - new onset with EF 45% possibly A Fib induced. Continue with Lasix 40 mg IV daily. Recommend continue Lasix 20 mg p.o. daily upon discharge. GDMT with metoprolol, Lasix, and spironolactone. Lisinopril 2.5 mg daily added. Recommend outpatient follow-up for ischemic workup. * Acute displaced fracture right 8th and 9th rib - management per primary team. Case Discussed with Dr Crenshaw. Continue with GDMT. Continue rate control with metoprolol. Follow-up risk stratification for fall prior to initiating anticoagulation therapy. Critical care, time spent: 48 minutes This medical document was created using an electronic medical record system with voice recognition software and computerized dictation system. Although this document has been carefully reviewed, there might still be some phonetic and ty pographical errors. Occasional wrong-word or ``sound-alike substitutions may have occurred due to the inherent limitations of voice recognition software. These areas are purely typographical due to imperfections of the software programs and do not reflect any compromise in the patient's medical care. Please read the chart carefully and recognize, using context, where these sub stitutions have occurred. The treatment plan was discussed with and agreed upon by patient/family including requesting consultants and ordering of imaging/procedures. Plan discussed with: Patient Date of Service: Dec 25, 2023 Billing Provider: SEEMA CRENSHAW MD Cardiology Common Codes: [id number] INP/OBS CARE (High), [id number] CARE 30-74 MIN KRISSY MANNING AGACNP Dec 25, 2023 11:33
--- NOTE | 2023-12-25 13:39 | DVHPN2 ---
Subjective The patient seen and examined at bedside. Still hurt in the chest area. Reviewed: Care Plan, H&P, Labs, Medications, Previous Orders, Radiology Changes from previous H/P or p: No Changes Eyes: No Pain, No Vision change, No Conjunctivae inflammation, No Eyelid inflammation, No Other, No Redness ENT: No Ear pain, No Ear discharge, No Nose pain, No Nose discharge, No Nose congestion, No Mouth pain, No Mouth swelling, No Throat pain, No Throat swelling, No Other Cardiovascular: Edema Respiratory: Shortness of breath Gastrointestinal: No Nausea, No Vomiting, No Abdominal Pain, No Diarrhea, No Constipation, No Melena, No Hematochezia, No Other Genitourinary: Retention Musculoskeletal: other (Right-sided lower rib cage pain) Skin: No Rash, No Lesions, No Jaundice, No Bruising, No Other Objective Vitals Vital Signs Date Time Temp Pulse Resp B/P (MAP) Pulse Ox O2 Delivery O2 Flow Rate FiO2 12/25/23 09:00 97.8 72 20 122/75 (91) 93 97.8 12/25/23 08:00 Nasal Cannula* 2 28 Intake/Output Intake and Output 12/25/23 07:00 Intake Total 700 ml Output Total 1300 ml Balance -600 ml Intake Oral 700 ml Output Urine Total 1300 ml General Appearance: Alert, Oriented X3, Cooperative, No acute distress HEENT: Atraumatic, PERRLA, EOMI, Mucous membr. moist/pink Neck: Supple Lungs: Clear to auscultation, Normal air movement Cardiovascular: Regular rate, Normal S1, Normal S2, No murmurs, Gallops, Rubs Abdomen: Normal bowel sounds, Soft, No tenderness Neuro: Cranial nerves 3-12 NL Psych/Mental Status: Mental status NL Medications Current Medications Medications Dose Ordered Sig/Kishan Route Start Time Stop Time Status Last Admin Dose Admin Sodium Chloride 10 ml Q8HR IV 12/23/23 22:00 12/25/23 12:05 10 ML Acetaminophen 325 mg Q4HP PRN PO 12/23/23 21:00 Ondansetron HCl 4 mg Q4HP PRN IV 12/23/23 21:00 Morphine Sulfate 2 mg Q4HPRN PRN IV 12/23/23 21:00 12/24/23 02:00 2 MG Enoxaparin Sodium 40 mg DAILY@2100 SC 12/23/23 21:00 12/24/23 22:12 40 MG Nitroglycerin 0.4 mg Q5MINP PRN SL 12/23/23 21:00 Morphine Sulfate 2 mg Q30M PRN IV 12/23/23 21:00 Furosemide 40 mg DAILY IV 12/23/23 23:45 12/25/23 07:42 40 MG Ergocalciferol 50,000 unit Q7D PO 12/24/23 07:45 12/24/23 11:43 50,000 UNIT Metoprolol Tartrate 25 mg BID PO 12/24/23 22:00 12/25/23 07:42 25 MG Laboratory Results Laboratory Tests 12/24/23 06:02 Urinalysis Test 12/24/23 08:22 Urine Color Yellow (Yellow) Urine Clarity Clear (Clear) Urine pH 5.5 (5.0-9.0) Urine Specific [place] 1.022 (1.001-1.035) Urine Protein 1+ (Negative) H Urine Ketones 1+ (Negative) H Urine Blood 1+ /uL (Negative) H Urine Nitrite Negative (Negative) Urine Bilirubin Negative (Negative) Urine Urobilinogen Normal mg/dL (Negative) Urine Leukocyte Esterase 2+ /uL (Negative) Urine RBC 11 /hpf (0 - 3) Urine WBC 107 /hpf (0 - 3) Urine Squamous Epithelial Cells Few /hpf (<5) Urine Bacteria None seen /hpf (None Seen) Urine Mucus Few (None Seen) Urine Glucose Normal mg/dL (Normal) Labs and/or images reviewed: Labs reviewed by me Assessment/Plan Assessment/Plan #Mechanical fall # Atrial fib, ? new onset? EKG show afib. 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 I will follow up with echo. Metoprolol 25mg bid # acute displaced fracture of right 8th and 9th ribs -currently on pain management -evident on x-ray -consult orthopedic if needed # ? Reactive leukocytosis # rule out sepsis -given 1 dose ceftriaxone -monitor lab # ? Acute G+/G- Bacterial PNA -given 1 dose of azithromycin and ceftriaxone -CXR findings suggestive of pneumonia # ? acute vs chronic systolic vs diastolic CHF -elevated BNP -ordered echocardiogram -currently given Lasix 40 mg IV -consult cardiology if needed # polycythemia -monitor lab -ordered reticulocyte count Lovenox for now Plan discussed with: Patient Date of Service: Dec 25, 2023 Billing Provider: KEKE YATES MD Common Visit Codes: [id number] INP/OBS CARE(HIGH) KEKE YATES MD Dec 25, 2023 13:39
[2023-12-25 18:26] LABS: Eosinophils # (auto) 0.3 10 ^3/uL (0-0.8); Lymphocytes # (auto) 1.1 10 ^3/uL (0.4-5.4); Monocytes # (auto) 1.1 10 ^3/uL (0-1.3)
[2023-12-25 18:27] LABS: Basophils # (auto) 0 10 ^3/uL (0-0.2); Basophils % (auto) 0.4 % (0.0-2.0); Eosinophils % (auto) 2.4 % (0.0-7.0); Hemoglobin 18.2 g/dL (13.5-17.5); Lymphocytes % (auto) 10.1 % (10.0-50.0); Mean Corpuscular Hemoglobin 27.6 pg (28.0-32.0); Mean Corpuscular Hgb Conc. 33.8 g/dL (32.0-36.0); Mean Corpuscular Volume 81.8 fL (80.0-100.0); Neutrophils # (auto) 8.4 10 ^3/uL (1.6-8.6); Neutrophils % (auto) 77.1 % (37.0-80.0); Nucleated Red Blood Cells % 0.1 %; Platelet Count (auto) 457 10^3/uL (140-450); Red Cell Distribution Width 16.6 % (11.8-14.3); White Blood Cell 10.9 10^3/uL (4.4-10.8)
[2023-12-25 18:43] LABS: Alanine Aminotransferase 57 U/L (7-40); Albumin 3.9 g/dL (3.2-4.8); Alkaline Phosphatase 79 U/L (46-116); Anion Gap 6 (5-15); Aspartate Aminotransferase 26 U/L (13-40); BUN/Creatinine Ratio 19.8 (10.0-20.0); Blood Urea Nitrogen 19 mg/dL (9-23); Calcium 9.6 mg/dL (8.7-10.4); Carbon Dioxide 29 mmol/L (20-31); Chloride 108 mmol/L (98-107); Glucose 104 mg/dL (74-106); Potassium 3.6 mmol/L (3.5-5.1); Sodium 143 mmol/L (136-145)
[2023-12-25 18:44] LABS: Bilirubin, Total 0.9 mg/dL (0.2-1.0); Total Protein 6.4 g/dL (5.7-8.2)
[2023-12-26] VITALS (9 sets, daily range): BP systolic 102–136; BP diastolic 58–99; PULSE 65–83; RESP 16–20; TEMP 97.3–98.9; O2SAT 94–97
[2023-12-26] MEDS: LISINOPRIL 5 MG TAB PO SCH (10:00)
[2023-12-26 10:03] LABS: Chloride 106 mmol/L (98-107); Potassium 3.7 mmol/L (3.5-5.1); Sodium 141 mmol/L (136-145)
[2023-12-26 10:04] LABS: Anion Gap 4 (5-15); Calcium 9.4 mg/dL (8.7-10.4); Carbon Dioxide 31 mmol/L (20-31)
[2023-12-26 10:09] LABS: BUN/Creatinine Ratio 16.7 (10.0-20.0); Blood Urea Nitrogen 19 mg/dL (9-23); Glucose 168 mg/dL (74-106); Triglycerides 104 mg/dL (< 150)
[2023-12-26 10:10] LABS: LDL Cholesterol 67 mg/dL (< 100)
[2023-12-26 10:11] LABS: Cholesterol 117 mg/dL (< 200); HDL Cholesterol 25 mg/dL (40-59)
[2023-12-26 10:30] LABS: Basophils # (auto) 0.2 10 ^3/uL (0-0.2); Eosinophils # (auto) 0.3 10 ^3/uL (0-0.8); Lymphocytes # (auto) 0.8 10 ^3/uL (0.4-5.4); Mean Corpuscular Hemoglobin 27.5 pg (28.0-32.0); Monocytes # (auto) 0.7 10 ^3/uL (0-1.3); Nucleated Red Blood Cells % 0.1 %
[2023-12-26 10:36] LABS: Basophils % (auto) 2.5 % (0.0-2.0); Eosinophils % (auto) 3.5 % (0.0-7.0); Hematocrit 52.3 % (41.0-53.0); Hemoglobin 17.5 g/dL (13.5-17.5); Lymphocytes % (auto) 8.2 % (10.0-50.0); Mean Corpuscular Hgb Conc. 33.4 g/dL (32.0-36.0); Mean Corpuscular Volume 82.3 fL (80.0-100.0); Monocytes % (auto) 7.7 % (0.0-12.0); Neutrophils # (auto) 7.5 10 ^3/uL (1.6-8.6); Neutrophils % (auto) 78.1 % (37.0-80.0); Platelet Count (auto) 474 10^3/uL (140-450); Red Blood Cells 6.36 10^6/uL (4.5-5.90); Red Cell Distribution Width 16.4 % (11.8-14.3); White Blood Cell 9.6 10^3/uL (4.4-10.8)
--- NOTE | 2023-12-26 10:38 | DVHPN2 ---
Consult Progress Note Subjective Other Systems: Patient remains in atrial fibrillation/ A-flutter with PVCs on equipment monitor phototypesetting. Objective vital signs Vital Sign Date Time Temp Pulse Resp B/P (MAP) Pulse Ox O2 Delivery O2 Flow Rate FiO2 12/26/23 10:35 140/80 12/26/23 09:00 98.9 74 16 95 98.9 12/25/23 20:00 Room Air* 0 21 Total Intake and Output 12/25/23 12/25/23 12/26/23 15:00 23:00 07:00 Intake Total 420 ml Output Total 450 ml Balance -30 ml medications Current Medications Medications Dose Ordered Sig/Kishan Route Start Time Stop Time Status Last Admin Dose Admin Sodium Chloride 10 ml Q8HR IV 12/23/23 22:00 12/26/23 06:00 10 ML Acetaminophen 325 mg Q4HP PRN PO 12/23/23 21:00 Ondansetron HCl 4 mg Q4HP PRN IV 12/23/23 21:00 Morphine Sulfate 2 mg Q4HPRN PRN IV 12/23/23 21:00 12/24/23 02:00 2 MG Enoxaparin Sodium 40 mg DAILY@2100 SC 12/23/23 21:00 12/25/23 21:40 40 MG Nitroglycerin 0.4 mg Q5MINP PRN SL 12/23/23 21:00 Morphine Sulfate 2 mg Q30M PRN IV 12/23/23 21:00 Furosemide 40 mg DAILY IV 12/23/23 23:45 12/26/23 10:35 40 MG Ergocalciferol 50,000 unit Q7D PO 12/24/23 07:45 12/24/23 11:43 50,000 UNIT Metoprolol Tartrate 25 mg BID PO 12/24/23 22:00 12/25/23 21:40 25 MG Lisinopril 2.5 mg DAILY PO 12/26/23 10:00 Examination: GENERAL:Abnormal, LUNGS:Normal, CVS:Normal, NEURO:Normal laboratory and microbiology Laboratory Tests 12/26/23 09:42 Test 12/26/23 09:42 Range/Units Serum Glucose 168 H 74-106 mg/dL Problem List/Assessment/Plan Problem List/Assessment/Plan Atrial fibrillation, new onset Acute on chronic HFmrEF, NYHA class III Hyperlipidemia Rib fractures (8th & 9th ribs) Urinary tract infection Plan/recommendations (Dr. Crenshaw): * Echocardiogram reveals EF 45%, RVSP 36 mmHg * [id number] VASc score: 4 points, HAS-BLED: 1 point * Continue beta-jose alberto for rate control * Hold off NOAC therapy at this time-----patient likely high risk of falls (consider risk of stroke vs. bleed) * BP control; up-titrate as tolerated * Restart home lipid lowering agent * Anterior and replete electrolytes as needed, keep K>4 and Mag>2 * Antibiotics per primary care team Patient seen and examined at bedside with Dr. Crenshaw. Thank you for allowing us to care for this patient. Please call with any questions or concerns. This medical document was created using an electronic medical record system with voice recognition software and computerized dictation system. Although this document has been carefully reviewed, there might still be some phonetic and typographical errors. Occasional wrong-word or ``sound-alike substitutions may have occurred due to the inherent limitations of voice recognition software. These areas are purely typographical due to imperfections of the software programs and do not reflect any compromise in the patient's medical care. Please read the chart carefully and recognize, using context, where these substitutions have occurred. Plan discussed with: Patient Date of Service: Dec 26, 2023 Billing Provider: SEEMA CRENSHAW MD Common Visit Codes: [id number] INP/OBS CARE(HIGH) YUDI BALDERAS [facility] Dec 26, 2023 10:38
--- NOTE | 2023-12-26 11:05 | DVHPN2 ---
Progress Note Date Seen: Dec 26, 2023 Medical Necessity Reason Pt with a Central, PICC or Fol: No Subjective Patient reports: No new complaints Review of Systems: HEENT:Normal, CVS:Normal, RESPIRATORY:Normal, GI:Normal, :Normal, MSK:Normal, NEURO:Normal Objective vital signs Vital Sign Date Time Temp Pulse Resp B/P (MAP) Pulse Ox O2 Delivery O2 Flow Rate FiO2 12/26/23 10:35 140/80 12/26/23 10:00 77 12/26/23 09:00 98.9 16 95 98.9 12/25/23 20:00 Room Air* 0 21 Total Intake and Output 12/25/23 12/25/23 12/26/23 15:00 23:00 07:00 Intake Total 420 ml Output Total 450 ml Balance -30 ml medications Current Medications Medications Dose Ordered Sig/Kishan Route Start Time Stop Time Status Last Admin Dose Admin Sodium Chloride 10 ml Q8HR IV 12/23/23 22:00 12/26/23 06:00 10 ML Acetaminophen 325 mg Q4HP PRN PO 12/23/23 21:00 Ondansetron HCl 4 mg Q4HP PRN IV 12/23/23 21:00 Morphine Sulfate 2 mg Q4HPRN PRN IV 12/23/23 21:00 12/24/23 02:00 2 MG Enoxaparin Sodium 40 mg DAILY@2100 SC 12/23/23 21:00 12/25/23 21:40 40 MG Nitroglycerin 0.4 mg Q5MINP PRN SL 12/23/23 21:00 Morphine Sulfate 2 mg Q30M PRN IV 12/23/23 21:00 Furosemide 40 mg DAILY IV 12/23/23 23:45 12/26/23 10:35 40 MG Ergocalciferol 50,000 unit Q7D PO 12/24/23 07:45 12/24/23 11:43 50,000 UNIT Metoprolol Tartrate 25 mg BID PO 12/24/23 22:00 12/26/23 10:00 25 MG Lisinopril 2.5 mg DAILY PO 12/26/23 10:00 12/26/23 10:00 2.5 MG Examination: GENERAL:Normal, HEENT:Normal, NECK:Normal, LUNGS:Normal, CVS:Normal, ABDOMEN:Normal, MSK:Normal, SKIN:Normal, NEURO:Normal, :Normal laboratory and microbiology Laboratory Tests 12/26/23 09:42 Test 12/26/23 09:42 Range/Units Serum Glucose 168 H 74-106 mg/dL Problem List/Assessment/Plan Problem List/Assessment/Plan #1 s/p fall/rib fractures #2 acute on chronic systolic/diastolic heart failure: lasix, lisinopril #3 htn #4 hyperlipidemia #5 uti: iv rocephin, culture #6 a fib: cont meds, asa advance care planning-dnr- time spent 21 mins Plan discussed with: Patient Date of Service: Dec 26, 2023 Billing Provider: LESLY CHRIS MD Common Visit Codes: [id number] INP/OBS CARE(HIGH) Secondary Visit Codes: [id number] CARE PLAN 30 MINUTES LESLY CHRIS MD Dec 26, 2023 11:05
[2023-12-26] MEDS: cefTRIAXone 1GM/50ML D5W 50 ML IV ONE (11:41)
[2023-12-26 12:09] LABS: Urine Bacteria FEW /hpf (None Seen); Urine Blood Negative /uL (Negative); Urine Clarity Clear (Clear); Urine Protein, UAD Negative (Negative); Urine Specific Gravity 1.006 (1.001-1.035); Urine Urobilinogen Normal (Negative); Urine WBC 7 /hpf (0 - 3); Urine pH 6.5 (5.0-9.0)
[2023-12-26 12:13] LABS: Urine Color Light-Yellow (Yellow)
--- NOTE | 2023-12-26 14:40 | DVH ---
RENAL ULTRASOUND CLINICAL HISTORY: uti TECHNIQUE: Multiple ultrasound images of the kidneys and bladder were obtained. COMPARISON: None FINDINGS: The right kidney measures 10.3 cm in length. The left kidney measures 12.6 cm. There is left renal pe lviectasis. There is no significant right renal hydronephrosis. There is a 0.7 cm cortical echogenic focus in the lower pole of the right kidney which May relate to vascular interface. There is no sonog raphic evidence of nephrolithiasis. There is marked prostatomegaly calculated volume of 195 cc. Bladder is poorly filled with volume elise uring 75 cc. IMPRESSION: 1. Left renal pelviectasis. There is no sonographic evidence of nephrolithiasis. 2. Marked prostatomegaly. HS:Y
[2023-12-26] MEDS: ATORVASTATIN 20 MG TAB PO SCH (22:00)
[2023-12-27] VITALS (8 sets, daily range): BP systolic 92–135; BP diastolic 52–77; PULSE 62–87; RESP 18–20; TEMP 97.4–98.8; O2SAT 92–96
[2023-12-27 06:37] LABS: Lymphocytes # (auto) 1.2 10 ^3/uL (0.4-5.4); Neutrophils # (auto) 7.4 10 ^3/uL (1.6-8.6); Nucleated Red Blood Cells % 0.1 %
[2023-12-27 06:40] LABS: Basophils # (auto) 0.2 10 ^3/uL (0-0.2); Basophils % (auto) 2.3 % (0.0-2.0); Eosinophils # (auto) 0.3 10 ^3/uL (0-0.8); Eosinophils % (auto) 3.3 % (0.0-7.0); Hemoglobin 18.2 g/dL (13.5-17.5); Mean Corpuscular Hemoglobin 27.9 pg (28.0-32.0); Mean Corpuscular Hgb Conc. 33.8 g/dL (32.0-36.0); Mean Corpuscular Volume 82.6 fL (80.0-100.0); Monocytes # (auto) 0.9 10 ^3/uL (0-1.3); Monocytes % (auto) 9.1 % (0.0-12.0); Neutrophils % (auto) 73.3 % (37.0-80.0); Platelet Count (auto) 449 10^3/uL (140-450); Red Blood Cells 6.54 10^6/uL (4.5-5.90); Red Cell Distribution Width 16.6 % (11.8-14.3); White Blood Cell 10.1 10^3/uL (4.4-10.8)
[2023-12-27 06:53] LABS: Anion Gap 4 (5-15); Carbon Dioxide 32 mmol/L (20-31); Chloride 106 mmol/L (98-107); Potassium 3.9 mmol/L (3.5-5.1); Sodium 142 mmol/L (136-145)
[2023-12-27 06:54] LABS: Calcium 9.6 mg/dL (8.7-10.4)
[2023-12-27 06:59] LABS: BUN/Creatinine Ratio 15.1 (10.0-20.0); Blood Urea Nitrogen 18 mg/dL (9-23); Glucose 112 mg/dL (74-106); Magnesium 2.3 mg/dL (1.6-2.6)
[2023-12-27] MEDS: cefTRIAXone 1GM/50ML D5W 50 ML IV SCH (08:10)
[2023-12-27] MEDS: FUROSEMIDE 40 MG TAB PO SCH (08:10)
[2023-12-27] MEDS: LISINOPRIL 5 MG TAB PO SCH (08:10)
--- NOTE | 2023-12-27 10:17 | DVHPN2 ---
Consult Progress Note Subjective Other Systems: Patient remains in atrial fibrillation/flutter with controlled rate. Episodes of bradycardia seen on event monitor, nonsustained. Objective vital signs Vital Sign Date Time Temp Pulse Resp B/P (MAP) Pulse Ox O2 Delivery O2 Flow Rate FiO2 12/27/23 09:00 98.7 69 18 132/73 (92) 96 98.7 12/26/23 20:00 Room Air* 0 21 Total Intake and Output 12/26/23 12/26/23 12/27/23 15:00 23:00 07:00 Intake Total 50 ml 1450 ml 100 ml Output Total 700 ml 300 ml Balance 50 ml 750 ml -200 ml medications Current Medications Medications Dose Ordered Sig/Kishan Route Start Time Stop Time Status Last Admin Dose Admin Sodium Chloride 10 ml Q8HR IV 12/23/23 22:00 12/27/23 05:58 10 ML Acetaminophen 325 mg Q4HP PRN PO 12/23/23 21:00 Ondansetron HCl 4 mg Q4HP PRN IV 12/23/23 21:00 Morphine Sulfate 2 mg Q4HPRN PRN IV 12/23/23 21:00 12/24/23 02:00 2 MG Nitroglycerin 0.4 mg Q5MINP PRN SL 12/23/23 21:00 Morphine Sulfate 2 mg Q30M PRN IV 12/23/23 21:00 Ergocalciferol 50,000 unit Q7D PO 12/24/23 07:45 12/24/23 11:43 50,000 UNIT Metoprolol Tartrate 25 mg BID PO 12/24/23 22:00 12/27/23 08:10 25 MG Acetaminophen/ Hydrocodone Bitart 1 tab Q6HPRN PRN PO 12/26/23 11:00 Furosemide 40 mg DAILY PO 12/27/23 10:00 12/27/23 08:10 40 MG Lisinopril 10 mg DAILY PO 12/27/23 10:00 12/27/23 08:10 10 MG Ceftriaxone Sodium 50 ml @ 100 mls/hr DAILY@09 IV 12/27/23 09:00 12/27/23 08:10 100 MLS/HR Atorvastatin Calcium 40 mg HS PO 12/26/23 22:00 12/26/23 22:00 40 MG Examination: GENERAL:Abnormal (Generalized weakness), LUNGS:Normal, CVS:Normal, NEURO:Abnormal (Periods of confusion) laboratory and microbiology Laboratory Tests 12/27/23 06:10 Test 12/27/23 06:10 Range/Units Serum Glucose 112 H 74-106 mg/dL Problem List/Assessment/Plan Problem List/Assessment/Plan Atrial fibrillation, new onset Acute on chronic HFmrEF, NYHA class III Hyperlipidemia Rib fractures (8th & 9th ribs) Urinary tract infection Plan/recommendations (Dr. Crenshaw): * Echocardiogram reveals EF 45%, RVSP 36 mmHg * [id number] VASc score: 4 points, HAS-BLED: 1 point * Continue beta-jose alberto for rate control * Hold off NOAC therapy at this time, consider prior to discharge-----patient likely high risk of falls (consider risk of stroke vs. bleed) * BP control; up-titrate as tolerated * Lipid lowering agent * Monitor and replete electrolytes as needed, keep K>4 and Mag>2 * Antibiotics per primary care team Patient seen and examined at bedside with Dr. Crenshaw. There is no further inpatient cardiac workup indicated at this time. The patient should follow up with Cardiology in the outpatient setting in 1-2 weeks post discharge. Thank you for allowing us to care for this patient. Please call with any questions or concerns. This medical document was created using an electronic medical record system with voice recognition software and computerized dictation system. Although this document has been carefully reviewed, there might still be some phonetic and typographical errors. Occasional wrong-word or ``sound-alike substitutions may have occurred due to the inherent limitations of voice recognition software. These areas are purely typographical due to imperfections of the software programs and do not reflect any compromise in the patient's medical care. Please read the chart carefully and recognize, using context, where these substitutions have occurred. Plan discussed with: Patient Date of Service: Dec 27, 2023 Billing Provider: SEEMA CRENSHAW MD Common Visit Codes: [id number] INP/OBS CARE(HIGH) YUDI BALDERAS [employer] Dec 27, 2023 10:17
--- NOTE | 2023-12-27 12:02 | DVHPN2 ---
Progress Note Date Seen: Dec 27, 2023 Medical Necessity Reason Pt with a Central, PICC or Fol: No Subjective Patient reports: No new complaints Review of Systems: HEENT:Normal, CVS:Normal, RESPIRATORY:Normal, GI:Normal, :Normal, MSK:Normal, NEURO:Normal Objective vital signs Vital Sign Date Time Temp Pulse Resp B/P (MAP) Pulse Ox O2 Delivery O2 Flow Rate FiO2 12/27/23 09:10 66 126/78 12/27/23 09:00 98.7 18 96 98.7 12/27/23 08:00 Room Air* 0 21 Total Intake and Output 12/26/23 12/26/23 12/27/23 15:00 23:00 07:00 Intake Total 50 ml 1450 ml 100 ml Output Total 700 ml 300 ml Balance 50 ml 750 ml -200 ml medications Current Medications Medications Dose Ordered Sig/Kishan Route Start Time Stop Time Status Last Admin Dose Admin Sodium Chloride 10 ml Q8HR IV 12/23/23 22:00 12/27/23 05:58 10 ML Acetaminophen 325 mg Q4HP PRN PO 12/23/23 21:00 Ondansetron HCl 4 mg Q4HP PRN IV 12/23/23 21:00 Morphine Sulfate 2 mg Q4HPRN PRN IV 12/23/23 21:00 12/24/23 02:00 2 MG Nitroglycerin 0.4 mg Q5MINP PRN SL 12/23/23 21:00 Morphine Sulfate 2 mg Q30M PRN IV 12/23/23 21:00 Ergocalciferol 50,000 unit Q7D PO 12/24/23 07:45 12/24/23 11:43 50,000 UNIT Metoprolol Tartrate 25 mg BID PO 12/24/23 22:00 12/27/23 08:10 25 MG Acetaminophen/ Hydrocodone Bitart 1 tab Q6HPRN PRN PO 12/26/23 11:00 Furosemide 40 mg DAILY PO 12/27/23 10:00 12/27/23 08:10 40 MG Lisinopril 10 mg DAILY PO 12/27/23 10:00 12/27/23 08:10 10 MG Ceftriaxone Sodium 50 ml @ 100 mls/hr DAILY@09 IV 12/27/23 09:00 12/27/23 08:10 100 MLS/HR Atorvastatin Calcium 40 mg HS PO 12/26/23 22:00 12/26/23 22:00 40 MG Examination: GENERAL:Normal, HEENT:Normal, NECK:Normal, LUNGS:Normal, CVS:Normal, ABDOMEN:Normal, MSK:Normal, SKIN:Normal, NEURO:Normal, :Normal laboratory and microbiology Laboratory Tests 12/27/23 06:10 Test 12/27/23 06:10 Range/Units Serum Glucose 112 H 74-106 mg/dL Problem List/Assessment/Plan Problem List/Assessment/Plan #1 s/p fall/rib fractures #2 acute on chronic systolic/diastolic heart failure: lasix, lisinopril #3 htn #4 hyperlipidemia #5 uti: iv rocephin, culture #6 a fib: cont meds, asa #7 bph: flomax,, finasteride advance care planning-dnr- time spent 21 mins Plan discussed with: Patient My Orders My Orders Orders - LESLY CHRIS MD Procedure Category Date Status Time DNR MARK 12/27/23 Verified 11:56 Tamsulosin PHA 12/27/23 Verified Hydrochloride (Flomax) 18:00 Date of Service: Dec 27, 2023 Billing Provider: LESLY CHRIS MD Common Visit Codes: [id number] INP/OBS CARE(HIGH) LESLY CHRIS MD Dec 27, 2023 12:02
[2023-12-27] MEDS: TAMSULOSIN HYDROCHLORIDE 0.4 MG CAP PO SCH (17:17)
[2023-12-28] VITALS (9 sets, daily range): BP systolic 102–122; BP diastolic 61–90; PULSE 66–88; RESP 18–21; TEMP 97.3–98.7; O2SAT 94–98
[2023-12-28] MEDS: METOPROLOL SUCCINATE XL 50 MG TAB PO SCH (08:56)
[2023-12-28] MEDS: EMPAGLIFLOZIN 10 MG TAB PO SCH (08:57)
[2023-12-28] MEDS: FINASTERIDE 5 MG TAB PO SCH (08:57)
[2023-12-28] MEDS ORDERED: FINASTERIDE 5 MG TAB PO SCH (10:00)
--- NOTE | 2023-12-28 12:18 | DVHDS2 ---
Discharge Summary Date of Admission Dec 23, 2023 at 20:47 Date of Discharge: Dec 28, 2023 Labs/Diagnostic Data: Laboratory Results Test 12/27/23 06:10 12/26/23 11:30 12/26/23 09:42 12/25/23 18:18 White Blood Count 10.1 10^3/uL (4.4-10.8) Red Blood Count 6.54 10^6/uL (4.5-5.90) Hemoglobin 18.2 g/dL (13.5-17.5) Hematocrit 54.0 % (41.0-53.0) Mean Corpuscular Volume 82.6 fL (80.0-100.0) Mean Corpuscular Hemoglobin 27.9 pg (28.0-32.0) Mean Corpuscular Hemoglobin Concent 33.8 g/dL (32.0-36.0) Red Cell Distribution Width 16.6 % (11.8-14.3) Platelet Count 449 10^3/uL (140-450) Mean Platelet Volume 7.7 fL (6.9-10.8) Neutrophils (%) (Auto) 73.3 % (37.0-80.0) Lymphocytes (%) (Auto) 12.0 % (10.0-50.0) Monocytes (%) (Auto) 9.1 % (0.0-12.0) Eosinophils (%) (Auto) 3.3 % (0.0-7.0) Basophils (%) (Auto) 2.3 % (0.0-2.0) Neutrophils # (Auto) 7.4 10 ^3/uL (1.6-8.6) Lymphocytes # (Auto) 1.2 10 ^3/uL (0.4-5.4) Monocytes # (Auto) 0.9 10 ^3/uL (0-1.3) Eosinophils # (Auto) 0.3 10 ^3/uL (0-0.8) Basophils # (Auto) 0.2 10 ^3/uL (0-0.2) Nucleated Red Blood Cells 0.1 % Sodium Level 142 mmol/L (136-145) Potassium Level 3.9 mmol/L (3.5-5.1) Chloride Level 106 mmol/L (98-107) Carbon Dioxide Level 32 mmol/L (20-31) Anion Gap 4 (5-15) Blood Urea Nitrogen 18 mg/dL (9-23) Creatinine 1.19 mg/dL (0.700-1.30) Glomerular Filtration Rate Calc 59 mL/min (>90) BUN/Creatinine Ratio 15.1 (10.0-20.0) Serum Glucose 112 mg/dL (74-106) Calcium Level 9.6 mg/dL (8.7-10.4) Magnesium Level 2.3 mg/dL (1.6-2.6) Urine Color Light-yellow (Yellow) Urine Clarity Clear (Clear) Urine pH 6.5 (5.0-9.0) Urine Specific [place] 1.006 (1.001-1.035) Urine Protein Negative (Negative) Urine Ketones Negative (Negative) Urine Blood Negative /uL (Negative) Urine Nitrite Negative (Negative) Urine Bilirubin Negative (Negative) Urine Urobilinogen Normal mg/dL (Negative) Urine Leukocyte Esterase 1+ /uL (Negative) Urine RBC 1 /hpf (0 - 3) Urine WBC 7 /hpf (0 - 3) Urine Squamous Epithelial Cells None seen /hpf (<5) Urine Bacteria Few /hpf (None Seen) Urine Glucose Normal mg/dL (Normal) Triglycerides Level 104 mg/dL (< 150) Cholesterol Level 117 mg/dL (< 200) LDL Cholesterol 67 mg/dL (< 100) HDL Cholesterol 25 mg/dL (40-59) Total Bilirubin 0.9 mg/dL (0.2-1.0) Aspartate Amino Transferase (AST) 26 U/L (13-40) Alanine Aminotransferase (ALT) 57 U/L (7-40) Alkaline Phosphatase 79 U/L (46-116) Total Protein 6.4 g/dL (5.7-8.2) Albumin 3.9 g/dL (3.2-4.8) Test 12/24/23 08:22 12/24/23 06:02 12/23/23 17:25 Urine Mucus Few (None Seen) Urine Opiates Screen Pos (NEGATIVE) Urine Fentanyl Screen Neg (NEGATIVE) Urine Barbiturates Screen Neg (NEGATIVE) Urine Phencyclidine Screen Neg (NEGATIVE) Urine Amphetamines Screen Neg (NEGATIVE) Urine Benzodiazepines Screen Neg (NEGATIVE) Urine Cocaine Screen Neg (NEGATIVE) Urine Cannabinoids Screen Neg (NEGATIVE) Prothrombin Time 13.6 sec (9.3-11.8) Prothrombin Time INR 1.31 (0.9-1.15) Activated Partial Thromboplast Time 33.4 SEC (24.5-34.5) Hemoglobin A1c 5.3 % A1C (<5.7) Lactic Acid Level 0.9 mmol/L (0.4-2.0) Vitamin B12 Level 524 pg/mL (211-911) Vitamin D 25-Hydroxy 23.3 ng/mL (30.0-100) Thyroid Stimulating Hormone (TSH) 1.37 uIU/mL (0.55-4.78) Troponin I High Sensitivity 6 ng/L (</=54) B-Type Natriuretic Peptide 183.80 pg/mL (0-100) Other Laboratory Tests 12/27/23 06:10 Brief Hx & Hospital Course: SEE DICTATED NOTE Condition at Discharge: Fair Final Diagnosis/Problems List UTI Discharge Disposition: Home Discharge Instruct/Medications Diet: Consistent carbohydrate, Cardiac 2g Na,low cholest Activity: No Restrictions, As Tolerated Follow Up/Referral: FU WITH PCP IN 1 WK Medications: RESUME HOME MEDS SCRIPT TO PHARMACY Discharge Statement: "Patient was advised to return to the ER or call 911 if any headaches, dizziness, shortness of breath, chest pain, abdominal pain, bleeding, fevers, or worsening of medical condition. Patient was counseled about treatment plan, medications, possible side effects, patientverbalized understanding. All questions were answered to the best of my ability. This discharge took greater then 30 minutes in planning, reviewing documentation, counseling the patient, and discussing with other team members." ASSESSMENT ASSESSMENT Assessment UTI Date of Service: Dec 28, 2023 Billing Provider: LESLY CHRIS MD Common Visit Codes: 08252-BPS/OBS DISCH DAY >30min LESLY CHRIS MD Dec 28, 2023 12:18
[2023-12-28] MEDS ORDERED: CEFD300C2 PO (12:19)
[2023-12-28] MEDS ORDERED: TAMS-35 PO (12:19)
[2023-12-28] MEDS ORDERED: FIN5T PO (12:19)
[2023-12-28] MEDS ORDERED: ASPI1TAB20 PO (12:23)
--- NOTE | 2023-12-28 12:45 | DVHDS ---
DATE OF DISCHARGE: 12/28/2023 HISTORY OF PRESENT ILLNESS: The patient is an 88-year-old gentleman who was admitted with history of mechanical fall and pain in the right ribcage. He has a history of diabetes, hypertension. HOSPITAL COURSE: The patient had elevated white count of 11.8. The patient has evidence of urinary tract infection. The patient had rib x-rays that showed rib fractures in eighth and ninth ribs on the right. The patient was placed on intravenous antibiotics. The patient had echocardiogram done that showed ejection fraction of 45%. He was seen in Cardiology consult by Dr. Mchugh. The patient was noted to be in atrial fibrillation, but no blood thinners were given because the patient is a high risk. The patient will now be discharged home to resume his home medications as well as to be on Flomax 0.4 mg at bedtime, cefdinir 300 mg p.o. b.i.d. for 7 days, aspirin 81 mg daily and finasteride 5 mg daily. He will follow up with his primary in 1 week. FINAL DIAGNOSES: Therefore, * Status post fall with right rib fractures. * Acute on chronic systolic/diastolic heart failure. * Urinary tract infection. * Benign prostatic hypertrophy. * Atrial fibrillation. * Hypertension. * Hyperlipidemia. * Do not resuscitate status. Time spent in discharge planning and review of plan with the patient and nursing was 38 minutes. MD EVI Watson/NYASIA TID: [id number] RECEIPT: [id number]
[2023-12-28] MEDS: HYDROcodone-ACET 5/325MG TAB PO PRN (16:53)
[2023-12-29 05:00] VITALS: BP 104/61; PULSE 71; RESP 18; TEMP 98.3; O2SAT 94
[2023-12-29 08:00] VITALS: PULSE 71; PULSE 77; RESP 16; O2SAT 95
[2023-12-29 08:54] VITALS: BP 120/78; PULSE 71; RESP 16; TEMP 98.1; O2SAT 95
--- NOTE | 2023-12-29 11:11 | DVHPN2 ---
Subjective The patient seen and examined at bedside. No complains today. Reviewed: Care Plan, H&P, Labs, Medications, Previous Orders, Radiology Changes from previous H/P or p: No Changes Eyes: No Pain, No Vision change, No Conjunctivae inflammation, No Eyelid inflammation, No Other, No Redness ENT: No Ear pain, No Ear discharge, No Nose pain, No Nose discharge, No Nose congestion, No Mouth pain, No Mouth swelling, No Throat pain, No Throat swelling, No Other Cardiovascular: Edema Respiratory: Shortness of breath Gastrointestinal: No Nausea, No Vomiting, No Abdominal Pain, No Diarrhea, No Constipation, No Melena, No Hematochezia, No Other Genitourinary: Retention Musculoskeletal: other (Right-sided lower rib cage pain) Skin: No Rash, No Lesions, No Jaundice, No Bruising, No Other Objective Vitals Vital Signs Date Time Temp Pulse Resp B/P (MAP) Pulse Ox O2 Delivery O2 Flow Rate FiO2 12/29/23 11:00 120/78 12/29/23 08:54 98.1 71 16 95 98.1 12/28/23 20:00 Room Air* 0 21 Intake/Output Intake and Output 12/29/23 07:00 Intake Total 775 ml Output Total 475 ml Balance 300 ml Intake Oral 725 ml IV Total 50 ml Output Urine Total 475 ml # Voids 4 # Bowel Movements 1 General Appearance: Alert, Oriented X3, Cooperative, No acute distress HEENT: Atraumatic, PERRLA, EOMI, Mucous membr. moist/pink Neck: Supple Lungs: Clear to auscultation, Normal air movement Cardiovascular: Regular rate, Normal S1, Normal S2, No murmurs, Gallops, Rubs Abdomen: Normal bowel sounds, Soft, No tenderness Extremities: No clubbing Neuro: Cranial nerves 3-12 NL Psych/Mental Status: Mental status NL Medications Current Medications Medications Dose Ordered Sig/Kishan Route Start Time Stop Time Status Last Admin Dose Admin Sodium Chloride 10 ml Q8HR IV 12/23/23 22:00 12/29/23 06:23 10 ML Acetaminophen 325 mg Q4HP PRN PO 12/23/23 21:00 Ondansetron HCl 4 mg Q4HP PRN IV 12/23/23 21:00 Morphine Sulfate 2 mg Q4HPRN PRN IV 12/23/23 21:00 12/24/23 02:00 2 MG Nitroglycerin 0.4 mg Q5MINP PRN SL 12/23/23 21:00 Morphine Sulfate 2 mg Q30M PRN IV 12/23/23 21:00 Ergocalciferol 50,000 unit Q7D PO 12/24/23 07:45 12/24/23 11:43 50,000 UNIT Acetaminophen/ Hydrocodone Bitart 1 tab Q6HPRN PRN PO 12/26/23 11:00 12/29/23 11:09 1 TAB Furosemide 40 mg DAILY PO 12/27/23 10:00 12/29/23 10:58 40 MG Lisinopril 10 mg DAILY PO 12/27/23 10:00 12/29/23 11:00 10 MG Ceftriaxone Sodium 50 ml @ 100 mls/hr DAILY@09 IV 12/27/23 09:00 12/29/23 10:58 100 MLS/HR Atorvastatin Calcium 40 mg HS PO 12/26/23 22:00 12/28/23 21:27 40 MG Tamsulosin HCl 0.4 mg QPM PO 12/27/23 18:00 12/28/23 16:51 0.4 MG Finasteride 5 mg DAILY PO 12/28/23 10:00 12/29/23 10:59 5 MG Finasteride 5 mg DAILY PO 12/28/23 10:00 UNV Empaglifozin 10 mg DAILY PO 12/28/23 10:00 12/29/23 10:58 10 MG Metoprolol Succinate 25 mg DAILY PO 12/28/23 10:00 12/28/23 08:56 25 MG Laboratory Results Laboratory Tests 12/27/23 06:10 Urinalysis Test 12/24/23 08:22 12/26/23 11:30 Urine Mucus Few (None Seen) Urine Color Light-yellow (Yellow) Urine Clarity Clear (Clear) Urine pH 6.5 (5.0-9.0) Urine Specific [place] 1.006 (1.001-1.035) Urine Protein Negative (Negative) Urine Ketones Negative (Negative) Urine Blood Negative /uL (Negative) Urine Nitrite Negative (Negative) Urine Bilirubin Negative (Negative) Urine Urobilinogen Normal mg/dL (Negative) Urine Leukocyte Esterase 1+ /uL (Negative) Urine RBC 1 /hpf (0 - 3) Urine WBC 7 /hpf (0 - 3) Urine Squamous Epithelial Cells None seen /hpf (<5) Urine Bacteria Few /hpf (None Seen) H Urine Glucose Normal mg/dL (Normal) Labs and/or images reviewed: Labs reviewed by me Assessment/Plan Assessment/Plan #Mechanical fall # Atrial fib, ? new onset? EKG show afib. Transmission System Operator input appreciate. I will follow up with echo. Metoprolol 25mg bid # acute displaced fracture of right 8th and 9th ribs -currently on pain management -evident on x-ray -consult orthopedic if needed # ? Reactive leukocytosis # rule out sepsis -given 1 dose ceftriaxone -monitor lab # ? Acute G+/G- Bacterial PNA -given 1 dose of azithromycin and ceftriaxone -CXR findings suggestive of pneumonia # ? acute vs chronic systolic vs diastolic CHF -elevated BNP -ordered echocardiogram -currently given Lasix 40 mg IV -consult cardiology if needed # polycythemia -monitor lab -ordered reticulocyte count Lovenox for now Waiting for transportation to go home. According to RN, they cannot contact with anyone for safe discharge. Today, they able to contact with his niece, Gwendolyn, who will pick him up. Plan discussed with: Patient Date of Service: Dec 29, 2023 Billing Provider: KEKE YATES MD Common Visit Codes: [id number] INP/OBS CARE(HIGH) KEKE YATES MD Dec 29, 2023 11:11
[2023-12-29 13:00] VITALS: BP 105/67; PULSE 71; RESP 16; TEMP 98.7; O2SAT 98
[2023-12-29 17:00] VITALS: BP 126/72; PULSE 63; RESP 16; TEMP 97.3; O2SAT 98
== END 2023-12-29 19:30 | disposition home or self-care (01) | DRG 177 ==
LOC: ER 14:58 → EDBD 14:58 → OVERFLOW 20:47 → EAST 20:48 → TELE-EAST 12-25 01:57
PROVIDERS: ADMIT Internal Medicine; ATTEND Internal Medicine
DX: J15.69 Pneumonia due to other Gram-negative bacteria (principal); I50.43 Acute on chronic combined systolic (congestive) and diastolic (congestive) heart failure; S22.41XA Multiple fractures of ribs, right side, initial encounter for closed fracture; I48.92 Unspecified atrial flutter; N39.0 Urinary tract infection, site not specified; I11.0 Hypertensive heart disease with heart failure; J15.9 Unspecified bacterial pneumonia; D75.1 Secondary polycythemia; Z66 Do not resuscitate; I48.91 Unspecified atrial fibrillation; J98.4 Other disorders of lung; N40.0 Benign prostatic hyperplasia without lower urinary tract symptoms; E78.5 Hyperlipidemia, unspecified; Z85.828 Personal history of other malignant neoplasm of skin; Z79.899 Other long term (current) drug therapy; Z79.82 Long term (current) use of aspirin; W18.39XA Other fall on same level, initial encounter; Y92.89 Other specified places as the place of occurrence of the external cause; Y93.89 Activity, other specified; Y99.8 Other external cause status
CPT/HCPCS: 36415; 71045; 71101; 76775; 80048; 80053; 80061; 80307; 81001; 82306; 82607; 82962; 83036; 83605; 83735; 83880; 84443; 84484; 85025; 85610; 85730; 93005; 93306; 97110; 97116; 97163; 97530; G0378

== ENCOUNTER 2024-07-25 18:35 | Emergency (ER) | payer MEDICARE, MEDICAID ==
[~2024-07-25] VITALS: Ht 182.9 cm; Wt 82.0 kg
[2024-07-25 18:35] VITALS: RESP 0
[~2024-07-25 18:35] MED LIST changes: +ASPI1TAB20 PO; +CEFD300C2 PO; +FIN5T PO; +HYDR-4902 PO; +TAMS-35 PO
[2024-07-25] MEDS ORDERED: AMIODARONE HCL (50 MG/ ML) 3 ML VIAL IV ONE (18:44)
[2024-07-25 19:08] VITALS: PULSE 157; RESP 10; TEMP 98.6; O2SAT 88
--- NOTE | 2024-07-25 19:39 | RESUS ---
CODE BLUE ASSESSSMENT History of Events History of Events: CALL CAME OUT TO EMS FOR C/O CHEST PAIN. AFTER EMS ASSESSED PT AND ATTACHED HIM TO ALL MONITORS, EKG SHOWED VFIB, PT WENT UNRESPONSIVE, ONE MINUTE OF CPR AND PT WAS SHOCKED AT 120J, REGAINED PULSES AND CONSCIOUSNESS. PT WENT INTO [facility] ON ARRIVAL TO ED [facility], WAS SHOCKED AGAIN AND LOST PULSES. CPR WAS STARTED IN BED 7 PER ACLS PROTOCOL. Initial Information Date: Jul 25, 2024 Time: 18:34 Location of Arrest: ER Arrest Witnessed: Yes CPR started initial time: 18:34 CPR started by whom: Hospital Staff Pre-Hospital Care: ACLS Type of arrest: Cardiac, Respiratory, Adult, Witnessed Spontaneous Respirations: No Pulse Present: No Monitoring: ECG Crash Cart Opened and Supplies: Yes Airway Ventilation Breathing at Onset: Assisted Oxygen Delivery Method: Ambu-Bag Time of first Assisted Ventila: 18:34 Artificial Ventilation: Bag/Mask Intubation Time: 18:45 Intubation Size: 7.5 cuffed Intubated by: DR ROCHA Intubation Attempts: 1 Intubated orally: Yes Intubated Nasaly: No Tube secured at: 23 Cricoid pressure done: Yes CO2 indicator used: Yes Confirmation: Auscultation, Exhaled CO2 Circulation Circulation #1: Time: 18:38 Circulation Comment: AFIB Circulation #2: Time: 18:43 Circulation Comment: VFIB Circulation #3: Time: 18:45 Circulation Comment: VFIB Circulation #4: Time: 18:48 Circulation Comment: PEA Circulation #5: Time: 18:53 Circulation Comment: PEA Defibrillation Defbrillation #1: Time Defibrillator Applied: 18:34 EKG Rhythm: Atrial Fibrillation Compressions: Manual Time Defibrillator Shocked Pt.: 18:38 Defib. Joules: 200 Pulse Present: No EKG Rhythm: Atrial Fibrillation Defbrillation #2: Compressions: Manual Time Defibrillator Shocked Pt.: 18:43 Defib. Joules: 200 Pulse Present: No EKG Rhythm: V-Fibrillation Defbrillation #3: Compressions: Manual Time Defibrillator Shocked Pt.: 18:46 Defib. Joules: 200 Pulse Present: No EKG Rhythm: V-Fibrillation Defbrillation #4: Compressions: Manual Procedure - IV Procedure - IV #1: IV start time: 18:38 IV Side: Left IV Location: Antecubital IV Catheter Type: Saline Lock IV Placed: In Hospital IV Gauge: 20 IV Line Care: Saline Flush Procedure - IV #2: IV start time: 18:40 IV Side: Right IV Location: Antecubital IV Catheter Type: Saline Lock IV Placed: In Hospital IV Gauge: 20 IV Line Care: Saline Flush Medications & Response Medications and Responses #1: Medication Time: 18:40 ADULT Medications Given ADULT: Calcium Chloride 10 mL Route of Administration: IV EKG Rhythm: V-Fibrillation Medications and Responses #2: Medication Time: 18:41 ADULT Medications Given ADULT: Amiodarone Drip Route of Administration: IV EKG Rhythm: V-Fibrillation Medications and Responses #3: Medication Time: 18:42 ADULT Medications Given ADULT: Magnesium Sulfate 2 gm Route of Administration: IV EKG Rhythm: V-Fibrillation Medications and Responses #4: Medication Time: 18:44 ADULT Medications Given ADULT: Epinephrine 1 mg, Sodium Bacarbinate 50 meq Route of Administration: IV EKG Rhythm: V-Fibrillation Medications and Responses #5: Medication Time: 18:46 ADULT Medications Given ADULT: Amiodarone 150 mg Route of Administration: IV EKG Rhythm: V-Fibrillation Medications and Responses #6: Medication Time: 18:48 ADULT Medications Given ADULT: Epinephrine 1 mg Route of Administration: IV EKG Rhythm: PEA Medications and Responses #7: Medication Time: 18:51 ADULT Medications Given ADULT: Epinephrine 1 mg Route of Administration: IV EKG Rhythm: PEA Nurses Notes Carbon Coma Scale Eye Opening: None (1) Edith Coma Scale Verbal: None (1) Edith Coma Scale Motor: None (1) [place] Total: 3 Pupil Reaction: Non Reactive Bedside Blood Glucose: 85 EKG Rhythm: PEA Time Code Ended Time Code Ended: 18:54 Post Arrest Status: Outcome of code: Unsuccessful Patient pronounced by: DR ROCHA Time patient pronounced: 18:54 Code Team Present: DR AJ BONE, RN ANDRES, RN RT RT VIKRAM, ERT KIERSTEN ERT SONDRA, LACIE CHAVEZ Jul 25, 2024 19:39
--- NOTE | 2024-07-25 21:28 | ED.PDOC ---
CPR-HPI HPI Comments 88-year-old male presents via EMS with CPR in progress. Per EMS patient called with chest pain and when EMS arrived they went to perform a 12 lead at that point patient arrested. They performed CPR and found the patient to be in VFib. They shocked the patient twice and patient had return of spontaneous circulation. Just prior to pulling into the emergency room patient lost pulse again and they really began CPR. Chief Complaint: CPR Time Seen by MD: 18:40 Allergies: Coded Allergies: NO KNOWN ALLERGIES (Unverified , 02/18/16) Home Meds Active Scripts Aspirin (Aspir-81) 81 Mg Tab, 81 MG PO DAILY for 30 Days, #30 TAB 4 Refills Prov:LESLY CHRIS MD 12/28/23 Cefdinir (Cefdinir) 300 Mg Cap, 300 MG PO BID for 7 Days, #14 CAP Prov:LESLY CHRIS MD 12/28/23 Finasteride (Finasteride) 5 Mg Tab, 5 MG PO DAILY for 30 Days, #30 TAB 4 Refills Prov:LESLY CHRIS MD 12/28/23 Tamsulosin Hcl (Flomax) 0.4 Mg Cap, 0.4 MG PO QPM for 30 Days, #30 CAP 4 Refills Prov:LESLY CHRIS MD 12/28/23 Hydrocodone-Acetaminophen (Hydrocodone Bitartrate/AC 5-325 mg) 1 Tab Tab, 1 TAB PO DAILY for 5 Days, #5 TAB Prov:JOELLEN JENNINGS MD 12/23/23 Reported Medications Gabapentin (Gabapentin) 300 Mg Cap, 1 CAP PO DAILY for 90 Days, #90 12/27/23 Atorvastatin Calcium (Lipitor) 80 Mg Tab, 1 TAB PO DAILY for 90 Days, #90 12/27/23 Furosemide (Furosemide) 20 Mg Tab, 1 TAB PO DAILY for 90 Days, #90 12/27/23 Amlodipine Besylate (Amlodipine Besylate) 10 Mg Tab, 1 TAB PO DAILY for 90 Days, #90 12/27/23 Metoprolol Succinate (Metoprolol Succinate Er) 50 Mg Tab, 1 TAB PO DAILY for 90 Days, #90 12/27/23 Metformin Hydrochloride (Metformin Hcl) 1,000 Mg Tab, 1 TAB PO BID for 90 Days, #180 12/27/23 Insulin Glargine (Lantus) 100 Unit/Ml Inj, 15 UNIT SC DAILY for 28 Days, #10 12/27/23 Mode of Arrival: EMS Past Medical History PAST MEDICAL HISTORY: DM, HTN Surgical History: Denies all surgeries Family History Family History: No family hx of Cancer, No family hx of Heart delisa Social History Smoker: Non-Smoker Alcohol: Denies ETOH Use Drugs: Denies Drug Use Lives In: Home All Other Systems: Deferred Physical Exam General Appearance: Other (CPR in progress) HEENT: Other (Pupils nonreactive) Neck: Normal Inspection Respiratory: Other (Patient being bagged) Cardiovascular: Other (CPR in progress) Breast Exam: Deferred Gastrointestinal: No Pulsatile Mass Genitalia: Deferred Pelvic: Deferred Rectal: Deferred Extremities: No pedal edema Neurologic: Other (Patient unresponsive) Cerebellar Function: Unable to Test Reflexes: NOT DONE Skin: Mottled Lymphatic: NOT DONE Was a procedure done? Was a procedure done?: No Differential Dx CPR Differential Diagnosis: Cardiogenic shock, Myocardial Infarction, Ruptured Aortic Aneurysm X-Ray, Labs, Meds, VS Vital Signs Date Time Temp Pulse Resp B/P (MAP) Pulse Ox O2 Delivery O2 Flow Rate FiO2 07/25/24 19:39 Ambu-Bag 07/25/24 19:08 98.6 157 10 88 98.6 07/25/24 18:35 0 Mechanical Ventilator+ 100 100 Time of 1ST Reevaluation: 00:52 (Patient ) Reevaluation 1ST: Patient Education/Counseling: Pt Unresponsive Family Education/Counseling: No Family Present Departure 1 Departure Time of Disposition: 00:52 (CPR per protocol but ultimately patient ) Impression: Primary Impression: Cardiac arrest Disposition: 20 Condition: Other () Critical Care Note Critical Care Time?: No Heart Score Heart Score: Heart Score Response (Comments) Value History N/A 0 EKG N/A 0 Age N/A 0 Risk Factors N/A 0 Troponin N/A 0 Total 0 Stability Stability form required: No RAVEN ROCHA MD Jul 25, 2024 21:28
== END 2024-07-25 18:54 ==
LOC: EDBD 18:35 → ER 18:43
DX: I46.9 Cardiac arrest, cause unspecified (principal); I49.01 Ventricular fibrillation; I10 Essential (primary) hypertension; E11.9 Type 2 diabetes mellitus without complications; Z79.82 Long term (current) use of aspirin; Z79.84 Long term (current) use of oral hypoglycemic drugs; Z79.899 Other long term (current) drug therapy
CPT/HCPCS: 82947; 92950; 99285; J0171; J0282; J1265; J3475